=== PATIENT | male | born 1945 | race Caucasian/White ===

== ENCOUNTER → 2016-07-06 | Outpatient (CLI) | payer OTHER, MEDICARE ==
[~2016-07-06] MED LIST: ALBUTEROL0.09 MG/A1 IH; AMARYL1 MG PO; AMBIEN 10MG10 MG PO; CENTRUM SILVER1 TA3 PO; CEPHALEXIN500 M1 PO; CIALIS5 MG PO; CLOBETASOL0.05% TP; CLOPIDOGREL; CORDARONE200 MG/TAB PO; DIOVAN HCT 25 M1 TA1 PO; DIOVAN160 MG PO; DOXYCYCLINE 10100 MG PO; ELIQUIS 5MG PO; FISH OIL 1000MG1 CAP PO; FISH OIL CONC1000 MG PO; FISH OIL CONCEN1 SG1 PO; FLEXERIL 1010 MG/TAB PO; FLONASEALLERGY NS; GLUCOPHAGE1000 MG PO; HCTZ 25MG25 MG PO; HCTZ12.5TAB PO; K-DUR 10 MEQ T10 MEQ PO; LASIX 20MG TABL20 MG PO; LEVAQUIN 750MG750 M1 PO; LIORESAL 1010 MG/TAB PO; MEDROL 4MG DOSPA4 MG PO; MUCINEX DM 30 M1 TE1 PO; NEURONTIN300 MG/CAP PO; NEURONTIN600 MG/TAB PO; NITROSTAT0.4 MG/TAB SL; NORCO 325 MG-101 TAB PO; NTG 0.4; OMEGA 31000 MG PO; PERCOCET 325 MG1 TAB PO; PLAVIX 75MG TAB75 MG PO; PREDNISONE20 MG PO; PROAIR HFA0.09 MG/AC IH; RT ADVAIR 228 DISKUS IH; TEMOVATE0.05% TP; TOPROL XL 50MG50 MG PO; TOPROL XL50 MG PO; VALIUM 5MG T5 MG/TAB PO; VENTOLIN0.09 MG IH; VICODIN 5/5001 UDTAB PO; ZETIA 10MG TAB10 MG PO; ZOCOR 20MG20 MG PO; [UNRECOGNIZED DRUG - REMARK]
== END ==
LOC: MHCPAIN 08:51
DX: G89.29 Other chronic pain (principal); M47.817 Spondylosis without myelopathy or radiculopathy, lumbosacral region; M96.1 Postlaminectomy syndrome, not elsewhere classified; M53.3 Sacrococcygeal disorders, not elsewhere classified
CPT/HCPCS: G0463

== ENCOUNTER → 2016-07-20 | Outpatient (CLI) | payer OTHER | LOC: COL.RAD 08:11 | DX: M54.16 Radiculopathy, lumbar region (principal); Z53.09 Procedure and treatment not carried out because of other contraindication; M96.1 Postlaminectomy syndrome, not elsewhere classified; M47.817 Spondylosis without myelopathy or radiculopathy, lumbosacral region; G89.29 Other chronic pain ==

== ENCOUNTER 2016-08-05 13:08 | Emergency (ER) | payer OTHER ==
[~2016-08-05] VITALS: Ht 175.3 cm; Wt 73.6 kg
[~2016-08-05 13:08] MED LIST changes: -AMARYL1 MG PO; -CORDARONE200 MG/TAB PO; -DIOVAN HCT 25 M1 TA1 PO; -DOXYCYCLINE 10100 MG PO; -ELIQUIS 5MG PO; -FLONASEALLERGY NS; -K-DUR 10 MEQ T10 MEQ PO; -LASIX 20MG TABL20 MG PO; -LEVAQUIN 750MG750 M1 PO; -MEDROL 4MG DOSPA4 MG PO; -MUCINEX DM 30 M1 TE1 PO; -PREDNISONE20 MG PO; -PROAIR HFA0.09 MG/AC IH; -RT ADVAIR 228 DISKUS IH; -TEMOVATE0.05% TP; -VENTOLIN0.09 MG IH
[2016-08-05 13:10] VITALS: BP 181/91; TEMP 97.7
[2016-08-05] MEDS ORDERED: NORCO 325 MG-101 TAB PO (13:45)
[2016-08-05 14:01] VITALS: PULSE 88
== END 2016-08-05 14:01 | disposition home or self-care (01) ==
LOC: COL.ER 13:08
DX: M54.5 Low back pain (principal)

== ENCOUNTER → 2016-08-20 | Outpatient (CLI) | payer OTHER ==
[~2016-08-20] MED LIST changes: +AMARYL1 MG PO; +CORDARONE200 MG/TAB PO; +DIOVAN HCT 25 M1 TA1 PO; +DOXYCYCLINE 10100 MG PO; +ELIQUIS 5MG PO; +FLONASEALLERGY NS; +K-DUR 10 MEQ T10 MEQ PO; +LASIX 20MG TABL20 MG PO; +LEVAQUIN 750MG750 M1 PO; +MEDROL 4MG DOSPA4 MG PO; +MUCINEX DM 30 M1 TE1 PO; +PREDNISONE20 MG PO; +PROAIR HFA0.09 MG/AC IH; +RT ADVAIR 228 DISKUS IH; +TEMOVATE0.05% TP; +VENTOLIN0.09 MG IH
== END ==
LOC: MHCPAIN 13:04
DX: G89.29 Other chronic pain (principal); M47.817 Spondylosis without myelopathy or radiculopathy, lumbosacral region; M54.16 Radiculopathy, lumbar region; M96.1 Postlaminectomy syndrome, not elsewhere classified
CPT/HCPCS: G0463

== ENCOUNTER → 2016-09-19 | Outpatient (CLI) | payer OTHER | LOC: MHCPAIN 10:12 | DX: G89.29 Other chronic pain (principal); M47.817 Spondylosis without myelopathy or radiculopathy, lumbosacral region; M54.16 Radiculopathy, lumbar region; M53.3 Sacrococcygeal disorders, not elsewhere classified; M96.1 Postlaminectomy syndrome, not elsewhere classified; F17.210 Nicotine dependence, cigarettes, uncomplicated | CPT/HCPCS: G0463 ==

== ENCOUNTER → 2016-10-02 | Outpatient (CLI) | payer OTHER, MEDICARE ==
[~2016-10-02] VITALS: Ht 177.8 cm; Wt 74.1 kg
[2016-10-02 15:15] VITALS: BP 166/90; PULSE 65
[2016-10-02 15:30] VITALS: BP 142/82; PULSE 66
== END ==
LOC: COL.RAD 11:14
DX: M96.1 Postlaminectomy syndrome, not elsewhere classified (principal)
CPT/HCPCS: A9585; J2704; J3010

== ENCOUNTER 2016-10-16 13:52 | Observation (INO) | payer MEDICARE, OTHER ==
[2016-10-16] VITALS (398 sets, daily range): BP systolic 100–145; BP diastolic 72–82; PULSE 70–113; TEMP 97.2–97.7; O2SAT 83–100
[~2016-10-16] VITALS: Ht 175.3 cm; Wt 76.7 kg
[~2016-10-16 13:52] MED LIST changes: -AMARYL1 MG PO; -CORDARONE200 MG/TAB PO; -DIOVAN HCT 25 M1 TA1 PO; -DOXYCYCLINE 10100 MG PO; -ELIQUIS 5MG PO; -FLONASEALLERGY NS; -K-DUR 10 MEQ T10 MEQ PO; -LASIX 20MG TABL20 MG PO; -LEVAQUIN 750MG750 M1 PO; -MEDROL 4MG DOSPA4 MG PO; -MUCINEX DM 30 M1 TE1 PO; -PREDNISONE20 MG PO; -PROAIR HFA0.09 MG/AC IH; -RT ADVAIR 228 DISKUS IH; -TEMOVATE0.05% TP; -VENTOLIN0.09 MG IH
[2016-10-16 14:23] LABS: BASO # 0.1 (0.0-0.2); BASO % 0.7 % (0.0-2.0); GRAN # 6.7 (1.4-6.5); GRAN % 68.2 % (42.2-75.2); HEMATOCRIT 40.5 % (42.0-52.0); HEMOGLOBIN 13.5 g/dl (13.5-18.0); INR 1.1 (0.8-3.0); LYMPH # 2.3 (1.2-3.4); LYMPH % 22.9 % (20.0-51.0); MEAN CELL VOLUME 92 fl (80.0-100.0); MEAN CORPUSCULAR HEMOGLOBIN 31 pg (27.0-31.0); MEAN CORPUSCULAR HGB CONC 33 g/dl (33.0-37.0); MEAN PLATELET VOLUME 9.5 fl (7.4-10.4); MONO # 0.8 (0.1-0.6); MONO % 7.7 % (1.7-9.3); PLATELET COUNT 256 K/mm3 (130-400); PROTHROMBIN TIME 11.9 SECONDS (9.7-12.8); RED BLOOD COUNT 4.41 M/mm3 (4.20-5.60); REDCELL DISTRIBUTION WIDTH-CV 13.4 % (11.5-14.5); WHITE BLOOD COUNT 9.8 K/mm3 (4.8-10.8)
[2016-10-16 14:25] LABS: PARTIAL THROMBOPLASTIN TIME 32.4 SECONDS (26.0-37.0)
[2016-10-16 14:27] LABS: ALBUMIN 4.3 gm/dL (3.5-5.0); BILIRUBIN,TOTAL 0.8 mg/dL (0.0-1.0); CALCIUM 9.2 mg/dL (8.4-10.2); CREATININE, serum 0.73 mg/dL (0.66-1.25); POTASSIUM 4.2 mmol/L (3.4-5.0); TOTAL PROTEIN 7.4 gm/dL (6.4-8.2)
[2016-10-16 14:38] LABS: TROPONIN-I 0.013 ng/mL (0.000-0.034)
[2016-10-16] MEDS ORDERED: FLONASEALLERGY NS (16:09)
[2016-10-16] MEDS ORDERED: ZETIA 10MG TAB10 MG PO (16:09)
[2016-10-16] MEDS ORDERED: AMARYL1 MG PO (16:11)
[2016-10-16] MEDS ORDERED: DIOVAN HCT 25 M1 TA1 PO (16:13)
[2016-10-16] MEDS ORDERED: TEMOVATE0.05% TP (16:15)
[2016-10-16 16:18] LABS: MAGNESIUM 1.7 mg/dL (1.6-2.3)
[2016-10-16] MEDS ORDERED: NITROSTAT0.4 MG/TAB SL (19:42)
[2016-10-17] VITALS (494 sets, daily range): BP systolic 126–133; BP diastolic 77–81; PULSE 70–83; TEMP 97.1–97.2; O2SAT 80–100
[2016-10-17 07:21] LABS: BASO # 0.1 (0.0-0.2); BASO % 0.6 % (0.0-2.0); GRAN # 8.6 (1.4-6.5); GRAN % 69.3 % (42.2-75.2); HEMATOCRIT 39.3 % (42.0-52.0); HEMOGLOBIN 12.9 g/dl (13.5-18.0); LYMPH # 2.8 (1.2-3.4); LYMPH % 22.7 % (20.0-51.0); MEAN CELL VOLUME 92 fl (80.0-100.0); MEAN CORPUSCULAR HEMOGLOBIN 30 pg (27.0-31.0); MEAN CORPUSCULAR HGB CONC 33 g/dl (33.0-37.0); MEAN PLATELET VOLUME 9.5 fl (7.4-10.4); MONO # 0.9 (0.1-0.6); PLATELET COUNT 242 K/mm3 (130-400); RED BLOOD COUNT 4.27 M/mm3 (4.20-5.60); REDCELL DISTRIBUTION WIDTH-CV 13.6 % (11.5-14.5); WHITE BLOOD COUNT 12.4 K/mm3 (4.8-10.8)
[2016-10-17 07:38] LABS: CALCIUM 8.5 mg/dL (8.4-10.2); CREATININE, serum 0.61 mg/dL (0.66-1.25); POTASSIUM 4.6 mmol/L (3.4-5.0)
[2016-10-17] MEDS ORDERED: ELIQUIS 5MG PO (11:36)
[2016-10-17] MEDS ORDERED: LEVAQUIN 750MG750 M1 PO (11:36)
[2016-10-17] MEDS ORDERED: MUCINEX DM 30 M1 TE1 PO (11:39)
[2016-10-17] MEDS ORDERED: RT ADVAIR 228 DISKUS IH (11:40)
[2016-10-17] MEDS ORDERED: PROAIR HFA0.09 MG/AC IH (11:41)
[2016-10-17] MEDS ORDERED: MEDROL 4MG DOSPA4 MG PO (11:41)
[2016-10-18] MEDS ORDERED: K-DUR 10 MEQ T10 MEQ PO (13:22)
[2016-10-18] MEDS ORDERED: LASIX 20MG TABL20 MG PO (13:22)
== END 2016-10-17 11:52 | disposition left against medical advice (07) ==
LOC: COL.ER 13:52 → ICU 15:15
PROVIDERS: Family Medicine; Internal Medicine
DX: I49.9 Cardiac arrhythmia, unspecified (principal); I95.9 Hypotension, unspecified; I08.1 Rheumatic disorders of both mitral and tricuspid valves; E11.9 Type 2 diabetes mellitus without complications; I10 Essential (primary) hypertension; I25.2 Old myocardial infarction; I25.10 Atherosclerotic heart disease of native coronary artery without angina pectoris; J43.9 Emphysema, unspecified; G47.00 Insomnia, unspecified; M54.9 Dorsalgia, unspecified; G89.29 Other chronic pain; M19.90 Unspecified osteoarthritis, unspecified site; N40.0 Benign prostatic hyperplasia without lower urinary tract symptoms; E78.5 Hyperlipidemia, unspecified; F41.9 Anxiety disorder, unspecified; F17.210 Nicotine dependence, cigarettes, uncomplicated; Z95.1 Presence of aortocoronary bypass graft; Z86.73 Personal history of transient ischemic attack (TIA), and cerebral infarction without residual deficits; Z79.84 Long term (current) use of oral hypoglycemic drugs; Z79.4 Long term (current) use of insulin; Z82.3 Family history of stroke; Z82.49 Family history of ischemic heart disease and other diseases of the circulatory system
CPT/HCPCS: 99223-AI; G0378; J1160; J1815; J7030

== ENCOUNTER 2016-10-18 07:34 | Emergency (ER) | payer MEDICARE ==
[~2016-10-18] VITALS: Ht 175.3 cm; Wt 75.5 kg
[~2016-10-18 07:34] MED LIST changes: -CORDARONE200 MG/TAB PO; -DOXYCYCLINE 10100 MG PO; -K-DUR 10 MEQ T10 MEQ PO; -LASIX 20MG TABL20 MG PO; -PREDNISONE20 MG PO; -VENTOLIN0.09 MG IH
[2016-10-18 07:37] VITALS: TEMP 98
[2016-10-18 08:53] LABS: BASO % 0.3 % (0.0-2.0); GRAN # 10.5 (1.4-6.5); GRAN % 83.9 % (42.2-75.2); HEMATOCRIT 38.1 % (42.0-52.0); HEMOGLOBIN 12.8 g/dl (13.5-18.0); LYMPH % 8.2 % (20.0-51.0); MEAN CELL VOLUME 89 fl (80.0-100.0); MEAN CORPUSCULAR HEMOGLOBIN 30 pg (27.0-31.0); MEAN CORPUSCULAR HGB CONC 34 g/dl (33.0-37.0); MEAN PLATELET VOLUME 10.1 fl (7.4-10.4); MONO # 0.9 (0.1-0.6); MONO % 7.1 % (1.7-9.3); PLATELET COUNT 241 K/mm3 (130-400); RED BLOOD COUNT 4.27 M/mm3 (4.20-5.60); REDCELL DISTRIBUTION WIDTH-CV 13.5 % (11.5-14.5); WHITE BLOOD COUNT 12.6 K/mm3 (4.8-10.8)
[2016-10-18 09:05] LABS: ADJUSTED CALCIUM 8.8 mg/dL (8.4-10.2); ALBUMIN 3.9 gm/dL (3.5-5.0); BILIRUBIN,TOTAL 0.9 mg/dL (0.0-1.0); CALCIUM 8.7 mg/dL (8.4-10.2); CREATININE, serum 0.59 mg/dL (0.66-1.25); POTASSIUM 3.8 mmol/L (3.4-5.0); TOTAL PROTEIN 6.8 gm/dL (6.4-8.2)
[2016-10-18 09:38] LABS: TROPONIN-I 0.047 ng/mL (0.000-0.034)
[2016-10-18 10:06] LABS: INR 1.3 (0.8-3.0); PROTHROMBIN TIME 14.3 SECONDS (9.7-12.8)
[2016-10-18] MEDS ORDERED: LASIX 20MG TABL20 MG PO (13:22)
[2016-10-18] MEDS ORDERED: K-DUR 10 MEQ T10 MEQ PO (13:22)
[2016-10-18 13:51] VITALS: BP 130/77; PULSE 80
== END 2016-10-18 13:33 | disposition home or self-care (01) ==
LOC: COL.ER 07:34
PROVIDERS: Emergency Medicine
DX: I50.9 Heart failure, unspecified (principal); R07.9 Chest pain, unspecified; I48.91 Unspecified atrial fibrillation; R06.02 Shortness of breath; R06.2 Wheezing
CPT/HCPCS: A9502; C9113; J1940

== ENCOUNTER → 2016-10-18 | Outpatient (CLI) | payer MEDICARE ==
[~2016-10-18] MED LIST changes: +AMARYL1 MG PO; +CORDARONE200 MG/TAB PO; +DIOVAN HCT 25 M1 TA1 PO; +DOXYCYCLINE 10100 MG PO; +ELIQUIS 5MG PO; +FLONASEALLERGY NS; +K-DUR 10 MEQ T10 MEQ PO; +LASIX 20MG TABL20 MG PO; +LEVAQUIN 750MG750 M1 PO; +MEDROL 4MG DOSPA4 MG PO; +MUCINEX DM 30 M1 TE1 PO; +PREDNISONE20 MG PO; +PROAIR HFA0.09 MG/AC IH; +RT ADVAIR 228 DISKUS IH; +TEMOVATE0.05% TP; +VENTOLIN0.09 MG IH
[2016-10-18 07:30] VITALS: BP 145/106; PULSE 140
[2016-10-18 11:04] VITALS: BP 1116/61; PULSE 77
[2016-10-18 11:05] VITALS: BP 103/66; PULSE 119
[2016-10-18 11:07] VITALS: BP 119/65; PULSE 88
[2016-10-18 11:09] VITALS: BP 108/63; PULSE 88
== END ==
LOC: COL.CARD 07:10
DX: I25.10 Atherosclerotic heart disease of native coronary artery without angina pectoris (principal)
CPT/HCPCS: J2785

== ENCOUNTER → 2016-10-19 | Outpatient (CLI) | payer MEDICARE ==
[~2016-10-19] MED LIST changes: +CORDARONE200 MG/TAB PO; +DOXYCYCLINE 10100 MG PO; +K-DUR 10 MEQ T10 MEQ PO; +LASIX 20MG TABL20 MG PO; +PREDNISONE20 MG PO; +VENTOLIN0.09 MG IH
== END ==
LOC: MHCPAIN 09:40
DX: G89.29 Other chronic pain (principal); M47.817 Spondylosis without myelopathy or radiculopathy, lumbosacral region; M54.16 Radiculopathy, lumbar region; M96.1 Postlaminectomy syndrome, not elsewhere classified
CPT/HCPCS: G0463

== ENCOUNTER 2016-10-23 10:54 | Outpatient (CLI) | payer MEDICARE ==
[2016-10-23] VITALS (8 sets, daily range): BP systolic 101–129; BP diastolic 65–82; PULSE 53–78; TEMP 98
[~2016-10-23] VITALS: Ht 176.5 cm; Wt 75.0 kg
[~2016-10-23 10:54] MED LIST changes: -CORDARONE200 MG/TAB PO; -DOXYCYCLINE 10100 MG PO; -PREDNISONE20 MG PO; -VENTOLIN0.09 MG IH
[2016-10-23 11:29] LABS: HEMATOCRIT 39.7 % (42.0-52.0); HEMOGLOBIN 13.1 g/dl (13.5-18.0); MEAN CELL VOLUME 90 fl (80.0-100.0); MEAN CORPUSCULAR HEMOGLOBIN 30 pg (27.0-31.0); MEAN CORPUSCULAR HGB CONC 33 g/dl (33.0-37.0); MEAN PLATELET VOLUME 9.2 fl (7.4-10.4); PLATELET COUNT 303 K/mm3 (130-400); RED BLOOD COUNT 4.41 M/mm3 (4.20-5.60); REDCELL DISTRIBUTION WIDTH-CV 13.5 % (11.5-14.5); WHITE BLOOD COUNT 11.4 K/mm3 (4.8-10.8)
[2016-10-23] MEDS ORDERED: VENTOLIN0.09 MG IH (11:31)
[2016-10-23] MEDS ORDERED: ELIQUIS 5MG PO (11:31)
[2016-10-23 11:34] LABS: INR 1.7 (0.8-3.0); PROTHROMBIN TIME 19.3 SECONDS (9.7-12.8)
[2016-10-23] MEDS ORDERED: RT ADVAIR 228 DISKUS IH (11:34)
[2016-10-23] MEDS ORDERED: LASIX 20MG TABL20 MG PO (11:36)
[2016-10-23] MEDS ORDERED: LEVAQUIN 750MG750 M1 PO (11:38)
[2016-10-23] MEDS ORDERED: K-DUR 10 MEQ T10 MEQ PO (11:42)
[2016-10-23 11:49] LABS: CALCIUM 8.9 mg/dL (8.4-10.2); CREATININE, serum 0.84 mg/dL (0.66-1.25); POTASSIUM 4.1 mmol/L (3.4-5.0)
[2016-10-23] MEDS ORDERED: CORDARONE200 MG/TAB PO (15:42)
== END 2016-10-23 16:25 | disposition home or self-care (01) ==
LOC: EUO 10:54 → COL.RAD 11:15 → EUO 16:25
PROVIDERS: Internal Medicine Cardiovascular Disease
DX: I34.0 Nonrheumatic mitral (valve) insufficiency (principal); I25.10 Atherosclerotic heart disease of native coronary artery without angina pectoris
CPT/HCPCS: J0282; J2704; J7030; J7060

== ENCOUNTER → 2016-11-19 | Outpatient (CLI) | payer MEDICARE ==
[~2016-11-19] MED LIST changes: +CORDARONE200 MG/TAB PO; +DOXYCYCLINE 10100 MG PO; +PREDNISONE20 MG PO; +VENTOLIN0.09 MG IH
== END ==
LOC: MHCPAIN 08:58
DX: G89.29 Other chronic pain (principal); M47.817 Spondylosis without myelopathy or radiculopathy, lumbosacral region; M54.16 Radiculopathy, lumbar region; M96.1 Postlaminectomy syndrome, not elsewhere classified; F17.210 Nicotine dependence, cigarettes, uncomplicated
CPT/HCPCS: G0463

== ENCOUNTER → 2016-12-24 | Outpatient (CLI) | payer MEDICARE | LOC: MHCPAIN 08:51 | DX: G89.29 Other chronic pain (principal); M47.27 Other spondylosis with radiculopathy, lumbosacral region; M53.3 Sacrococcygeal disorders, not elsewhere classified; M96.1 Postlaminectomy syndrome, not elsewhere classified; I48.91 Unspecified atrial fibrillation; F17.210 Nicotine dependence, cigarettes, uncomplicated; Z79.02 Long term (current) use of antithrombotics/antiplatelets | CPT/HCPCS: G0463 ==

== ENCOUNTER 2017-01-13 19:43 | Emergency (ER) | payer MEDICARE ==
[~2017-01-13] VITALS: Ht 175.3 cm; Wt 75.0 kg
[~2017-01-13 19:43] MED LIST changes: -DOXYCYCLINE 10100 MG PO; -PREDNISONE20 MG PO
[2017-01-13 19:44] VITALS: TEMP 97.9
[2017-01-13 20:16] LABS: BASO # 0.1 (0.0-0.2); BASO % 0.8 % (0.0-2.0); GRAN # 8.2 (1.4-6.5); GRAN % 63.3 % (42.2-75.2); HEMATOCRIT 41.2 % (42.0-52.0); HEMOGLOBIN 13.9 g/dl (13.5-18.0); LYMPH # 3.5 (1.2-3.4); LYMPH % 26.9 % (20.0-51.0); MEAN CELL VOLUME 89 fl (80.0-100.0); MEAN CORPUSCULAR HEMOGLOBIN 30 pg (27.0-31.0); MEAN CORPUSCULAR HGB CONC 34 g/dl (33.0-37.0); MEAN PLATELET VOLUME 9.4 fl (7.4-10.4); MONO # 1.1 (0.1-0.6); MONO % 8.5 % (1.7-9.3); PLATELET COUNT 227 K/mm3 (130-400); RED BLOOD COUNT 4.62 M/mm3 (4.20-5.60); REDCELL DISTRIBUTION WIDTH-CV 14.7 % (11.5-14.5)
[2017-01-13 20:29] LABS: ADJUSTED CALCIUM 8.7 mg/dL (8.4-10.2); ALANINE AMINOTRANSFERASE 31 U/L (21-72); ALBUMIN 4.3 gm/dL (3.5-5.0); ALKALINE PHOSPHATASE 62 U/L (50-136); ANION GAP 11 mmol/L (7-16); BILIRUBIN,TOTAL 0.5 mg/dL (0.0-1.0); BLOOD UREA NITROGEN 13 mg/dL (9-20); C-REACTIVE PROTEIN 1.3 mg/dL (0.0-0.9); CALCIUM 8.9 mg/dL (8.4-10.2); CARBON DIOXIDE 26 mmol/L (22-30); CHLORIDE 96 mmol/L (98-107); CREATININE, serum 0.83 mg/dL (0.66-1.25); GLUCOSE 89 mg/dL (74-106); POTASSIUM 3.7 mmol/L (3.4-5.0); SODIUM 134 mmol/L (137-145); TOTAL PROTEIN 7.2 gm/dL (6.4-8.2)
[2017-01-13 20:38] LABS: B-TYPE NATRIURETIC PEPTIDE 859 pg/mL (0-125)
[2017-01-13 20:39] LABS: TROPONIN-I < 0.012 ng/mL (0.000-0.034)
[2017-01-13] MEDS ORDERED: PREDNISONE20 MG PO (22:27)
[2017-01-13] MEDS ORDERED: DOXYCYCLINE 10100 MG PO (22:27)
[2017-01-13 22:50] VITALS: BP 177/86; PULSE 55
== END 2017-01-13 22:50 | disposition home or self-care (01) ==
LOC: COL.ER 19:43
PROVIDERS: Emergency Medicine
DX: J20.9 Acute bronchitis, unspecified (principal); I48.91 Unspecified atrial fibrillation; I10 Essential (primary) hypertension; E78.5 Hyperlipidemia, unspecified; F17.210 Nicotine dependence, cigarettes, uncomplicated; Z86.73 Personal history of transient ischemic attack (TIA), and cerebral infarction without residual deficits; Z87.09 Personal history of other diseases of the respiratory system; Z79.02 Long term (current) use of antithrombotics/antiplatelets; Z79.84 Long term (current) use of oral hypoglycemic drugs
CPT/HCPCS: J7512; Q9967

== ENCOUNTER → 2017-01-23 | Outpatient (CLI) | payer MEDICARE ==
[~2017-01-23] MED LIST changes: +DOXYCYCLINE 10100 MG PO; +PREDNISONE20 MG PO
== END ==
LOC: MHCPAIN 08:56
DX: G89.29 Other chronic pain (principal); M47.27 Other spondylosis with radiculopathy, lumbosacral region; M53.3 Sacrococcygeal disorders, not elsewhere classified; M96.1 Postlaminectomy syndrome, not elsewhere classified; F17.210 Nicotine dependence, cigarettes, uncomplicated; Z79.02 Long term (current) use of antithrombotics/antiplatelets
CPT/HCPCS: G0463

== ENCOUNTER 2017-02-28 09:16 | Emergency (ER) | payer MEDICARE ==
[~2017-02-28] VITALS: Ht 175.3 cm; Wt 68.6 kg
[2017-02-28] MEDS ORDERED: PERCOCET 325 MG1 TA2 PO (11:02)
[2017-02-28] MEDS ORDERED: FLEXERIL 1010 MG/TAB PO (11:02)
[2017-02-28 11:44] VITALS: BP 171/81; PULSE 74; TEMP 97.8
== END 2017-02-28 11:30 | disposition home or self-care (01) ==
LOC: COL.ER 09:16
DX: M54.5 Low back pain (principal); E11.9 Type 2 diabetes mellitus without complications; I10 Essential (primary) hypertension; F17.210 Nicotine dependence, cigarettes, uncomplicated; Z79.84 Long term (current) use of oral hypoglycemic drugs; Z79.02 Long term (current) use of antithrombotics/antiplatelets; X58.XXXA Exposure to other specified factors, initial encounter
CPT/HCPCS: J2360

== ENCOUNTER → 2017-04-24 | Outpatient (CLI) | payer MEDICARE ==
[~2017-04-24] MED LIST changes: +PERCOCET 325 MG1 TA2 PO
== END ==
LOC: MHCPAIN 08:29
DX: G89.29 Other chronic pain (principal); M47.27 Other spondylosis with radiculopathy, lumbosacral region; M53.3 Sacrococcygeal disorders, not elsewhere classified; M96.1 Postlaminectomy syndrome, not elsewhere classified; F17.210 Nicotine dependence, cigarettes, uncomplicated
CPT/HCPCS: G0463

== ENCOUNTER → 2017-05-22 | Outpatient (CLI) | payer MEDICARE | LOC: MHCPAIN 09:05 | DX: G89.29 Other chronic pain (principal); M47.27 Other spondylosis with radiculopathy, lumbosacral region; M53.3 Sacrococcygeal disorders, not elsewhere classified; M96.1 Postlaminectomy syndrome, not elsewhere classified; F17.210 Nicotine dependence, cigarettes, uncomplicated | CPT/HCPCS: G0463 ==

== ENCOUNTER → 2017-06-24 | Outpatient (CLI) | payer MEDICARE | LOC: MHCPAIN 09:19 | DX: G89.29 Other chronic pain (principal); M47.27 Other spondylosis with radiculopathy, lumbosacral region; M53.3 Sacrococcygeal disorders, not elsewhere classified; M96.1 Postlaminectomy syndrome, not elsewhere classified; F17.210 Nicotine dependence, cigarettes, uncomplicated | CPT/HCPCS: G0463 ==

== ENCOUNTER → 2017-07-22 | Outpatient (CLI) | payer MEDICARE | LOC: MHCPAIN 09:09 | DX: G89.29 Other chronic pain (principal); M47.27 Other spondylosis with radiculopathy, lumbosacral region; M53.3 Sacrococcygeal disorders, not elsewhere classified; M96.1 Postlaminectomy syndrome, not elsewhere classified; F17.210 Nicotine dependence, cigarettes, uncomplicated | CPT/HCPCS: G0463 ==

== ENCOUNTER → 2017-08-19 | Outpatient (CLI) | payer MEDICARE | LOC: MHCPAIN 12:25 | DX: G89.29 Other chronic pain (principal); M47.27 Other spondylosis with radiculopathy, lumbosacral region; M53.3 Sacrococcygeal disorders, not elsewhere classified; M96.1 Postlaminectomy syndrome, not elsewhere classified; F17.210 Nicotine dependence, cigarettes, uncomplicated | CPT/HCPCS: G0463 ==

== ENCOUNTER → 2017-09-02 | Outpatient (CLI) | payer MEDICARE | LOC: MHCPAIN 13:13 | DX: G89.29 Other chronic pain (principal); M47.817 Spondylosis without myelopathy or radiculopathy, lumbosacral region; M54.16 Radiculopathy, lumbar region; M53.3 Sacrococcygeal disorders, not elsewhere classified; M96.1 Postlaminectomy syndrome, not elsewhere classified | CPT/HCPCS: G0463 ==

== ENCOUNTER → 2017-11-04 | Outpatient (CLI) | payer MEDICARE | LOC: MHCPAIN 10:07 | DX: G89.29 Other chronic pain (principal); M47.817 Spondylosis without myelopathy or radiculopathy, lumbosacral region; M54.16 Radiculopathy, lumbar region; M53.3 Sacrococcygeal disorders, not elsewhere classified; M96.1 Postlaminectomy syndrome, not elsewhere classified | CPT/HCPCS: G0463 ==

== ENCOUNTER → 2017-11-07 | Outpatient (CLI) | payer MEDICARE | LOC: COL.RAD 13:39 | DX: J84.89 Other specified interstitial pulmonary diseases (principal); I51.7 Cardiomegaly; Z95.1 Presence of aortocoronary bypass graft; Z98.890 Other specified postprocedural states ==

== ENCOUNTER → 2017-12-24 | Outpatient (CLI) | payer MEDICARE | LOC: COL.RAD 11:48 | DX: I65.23 Occlusion and stenosis of bilateral carotid arteries (principal); I65.03 Occlusion and stenosis of bilateral vertebral arteries; M47.812 Spondylosis without myelopathy or radiculopathy, cervical region | CPT/HCPCS: Q9967 ==

== ENCOUNTER → 2018-01-06 | Outpatient (CLI) | payer MEDICARE ==
[~2018-01-06] MED LIST changes: +ANORO INH; +BENICAR HCT 251 TAB PO; +SPIRIVA RE2.5 MCG/Ac INH; +ZITHROMAX Z PA250 MG PO
== END ==
LOC: MHCPAIN 09:30
DX: G89.29 Other chronic pain (principal); M47.817 Spondylosis without myelopathy or radiculopathy, lumbosacral region; M54.16 Radiculopathy, lumbar region; M53.3 Sacrococcygeal disorders, not elsewhere classified; M96.1 Postlaminectomy syndrome, not elsewhere classified
CPT/HCPCS: G0463

== ENCOUNTER 2018-01-08 07:38 | Emergency (ER) | payer MEDICARE ==
[~2018-01-08] VITALS: Ht 175.3 cm; Wt 70.5 kg
[~2018-01-08 07:38] MED LIST changes: -ANORO INH; -BENICAR HCT 251 TAB PO; -SPIRIVA RE2.5 MCG/Ac INH; -ZITHROMAX Z PA250 MG PO
[2018-01-08 07:43] VITALS: TEMP 98.1
[2018-01-08] MEDS ORDERED: BENICAR HCT 251 TAB PO (08:05)
[2018-01-08] MEDS ORDERED: SPIRIVA RE2.5 MCG/Ac INH (08:12)
[2018-01-08] MEDS ORDERED: ANORO INH (08:13)
[2018-01-08 08:57] VITALS: BP 161/86; PULSE 60
== END 2018-01-08 08:54 | disposition home or self-care (01) ==
LOC: COL.ER 07:38
DX: S22.32XA Fracture of one rib, left side, initial encounter for closed fracture (principal); I10 Essential (primary) hypertension; I25.10 Atherosclerotic heart disease of native coronary artery without angina pectoris; E78.00 Pure hypercholesterolemia, unspecified; J44.9 Chronic obstructive pulmonary disease, unspecified; F17.210 Nicotine dependence, cigarettes, uncomplicated; W01.10XA Fall on same level from slipping, tripping and stumbling with subsequent striking against unspecified object, initial encounter; Y92.009 Unspecified place in unspecified non-institutional (private) residence as the place of occurrence of the external cause
CPT/HCPCS: J1170

== ENCOUNTER 2018-01-10 10:01 | Emergency (ER) | payer MEDICARE ==
[~2018-01-10] VITALS: Ht 175.3 cm; Wt 70.5 kg
[~2018-01-10 10:01] MED LIST changes: +ANORO INH; +BENICAR HCT 251 TAB PO; +SPIRIVA RE2.5 MCG/Ac INH
[2018-01-10 10:05] VITALS: BP 157/89; TEMP 97.9
[2018-01-10] MEDS ORDERED: ZITHROMAX Z PA250 MG PO (10:27)
[2018-01-10 10:46] VITALS: PULSE 60
== END 2018-01-10 10:48 | disposition home or self-care (01) ==
LOC: COL.ER 10:01
DX: R07.89 Other chest pain (principal)

== ENCOUNTER → 2018-03-04 | Outpatient (CLI) | payer MEDICARE ==
[~2018-03-04] MED LIST changes: +ZITHROMAX Z PA250 MG PO
== END ==
LOC: MHCPAIN 09:34
DX: G89.29 Other chronic pain (principal); M47.817 Spondylosis without myelopathy or radiculopathy, lumbosacral region; M54.16 Radiculopathy, lumbar region; M53.3 Sacrococcygeal disorders, not elsewhere classified; M96.1 Postlaminectomy syndrome, not elsewhere classified
CPT/HCPCS: G0463

== ENCOUNTER → 2018-04-30 | Outpatient (CLI) | payer MEDICARE | LOC: MHCPAIN 09:21 | DX: G89.29 Other chronic pain (principal); M47.817 Spondylosis without myelopathy or radiculopathy, lumbosacral region; M54.16 Radiculopathy, lumbar region; M53.3 Sacrococcygeal disorders, not elsewhere classified; M96.1 Postlaminectomy syndrome, not elsewhere classified | CPT/HCPCS: G0463 ==

== ENCOUNTER → 2018-05-28 | Outpatient (CLI) | payer MEDICARE | LOC: MHCPAIN 09:02 | DX: G89.29 Other chronic pain (principal); M47.817 Spondylosis without myelopathy or radiculopathy, lumbosacral region; M54.16 Radiculopathy, lumbar region; M53.3 Sacrococcygeal disorders, not elsewhere classified; M96.1 Postlaminectomy syndrome, not elsewhere classified | CPT/HCPCS: G0463 ==

== ENCOUNTER 2018-06-18 14:04 | Emergency (ER) | payer MEDICARE ==
[~2018-06-18] VITALS: Ht 175.3 cm; Wt 72.7 kg
[2018-06-18 14:14] VITALS: TEMP 97.7
[2018-06-18] MEDS ORDERED: FLEXERIL 1010 MG/TAB PO (15:05)
[2018-06-18 16:29] VITALS: BP 157/85; PULSE 76
== END 2018-06-18 16:32 | disposition home or self-care (01) ==
LOC: COL.ER 14:04
DX: M54.5 Low back pain (principal); G89.29 Other chronic pain; I25.10 Atherosclerotic heart disease of native coronary artery without angina pectoris; E11.9 Type 2 diabetes mellitus without complications; F17.210 Nicotine dependence, cigarettes, uncomplicated; Z79.84 Long term (current) use of oral hypoglycemic drugs; Z95.5 Presence of coronary angioplasty implant and graft

== ENCOUNTER → 2018-06-24 | Outpatient (CLI) | payer MEDICARE | LOC: MHCPAIN 08:32 | DX: G89.29 Other chronic pain (principal); M47.817 Spondylosis without myelopathy or radiculopathy, lumbosacral region; M54.16 Radiculopathy, lumbar region; M53.3 Sacrococcygeal disorders, not elsewhere classified; M96.1 Postlaminectomy syndrome, not elsewhere classified | CPT/HCPCS: G0463 ==

== ENCOUNTER → 2018-08-25 | Outpatient (CLI) | payer MEDICARE | LOC: MHCPAIN 09:37 | DX: G89.29 Other chronic pain (principal); M47.817 Spondylosis without myelopathy or radiculopathy, lumbosacral region; M54.16 Radiculopathy, lumbar region; M53.3 Sacrococcygeal disorders, not elsewhere classified; M96.1 Postlaminectomy syndrome, not elsewhere classified | CPT/HCPCS: G0463 ==

== ENCOUNTER → 2018-11-17 | Outpatient (CLI) | payer OTHER, MEDICARE | LOC: MHCPAIN 10:11 | DX: G89.29 Other chronic pain (principal); M47.817 Spondylosis without myelopathy or radiculopathy, lumbosacral region; M54.16 Radiculopathy, lumbar region; M53.3 Sacrococcygeal disorders, not elsewhere classified; M96.1 Postlaminectomy syndrome, not elsewhere classified | CPT/HCPCS: G0463 ==

== ENCOUNTER → 2019-02-16 | Outpatient (CLI) | payer OTHER, MEDICARE | LOC: MHCPAIN 10:11 | DX: G89.29 Other chronic pain (principal); M47.817 Spondylosis without myelopathy or radiculopathy, lumbosacral region; M54.16 Radiculopathy, lumbar region; M53.3 Sacrococcygeal disorders, not elsewhere classified; M96.1 Postlaminectomy syndrome, not elsewhere classified | CPT/HCPCS: G0463 ==

== ENCOUNTER → 2019-03-16 | Outpatient (CLI) | payer MEDICARE | LOC: COL.RAD 10:06 | DX: Z01.812 Encounter for preprocedural laboratory examination (principal); I65.23 Occlusion and stenosis of bilateral carotid arteries | CPT/HCPCS: Q9967 ==

== ENCOUNTER 2019-05-15 09:02 | Emergency (ER) | payer OTHER ==
[~2019-05-15] VITALS: Ht 175.3 cm; Wt 73.6 kg
[2019-05-15 09:06] VITALS: BP 111/77; TEMP 97.6
[2019-05-15] MEDS ORDERED: ZANAFLEX2 MG PO (09:24)
[2019-05-15] MEDS ORDERED: TRULICITY0.75 MG/0. SQ (09:24)
[2019-05-15 10:37] VITALS: PULSE 94
== END 2019-05-15 10:38 | disposition home or self-care (01) ==
LOC: COL.ER 09:02
DX: M54.5 Low back pain (principal); G89.29 Other chronic pain; E11.9 Type 2 diabetes mellitus without complications; I10 Essential (primary) hypertension; Z88.6 Allergy status to analgesic agent; F17.210 Nicotine dependence, cigarettes, uncomplicated; Z88.5 Allergy status to narcotic agent; Z95.1 Presence of aortocoronary bypass graft; Z79.84 Long term (current) use of oral hypoglycemic drugs
CPT/HCPCS: J1170

== ENCOUNTER → 2019-06-24 | Outpatient (CLI) | payer MEDICARE ==
[~2019-06-24] MED LIST changes: +CATAPRES 0.1MG0.1 MG PO; +COZAAR100 MG PO; +HCTZ 25MG TAB25 MG PO; +NORVASC 5MG5 MG/TAB PO; +OSCAL 500 TAB500 MG PO; +PACERONE200 MG PO; +TOPROL XL 25MG25 MG PO; +TRULICITY0.75 MG/0. SQ; +ZANAFLEX2 MG PO
[2019-06-24 10:46] LABS: ALANINE AMINOTRANSFERASE 18 U/L (21-72); ALBUMIN 4.7 gm/dL (3.5-5.0); ALKALINE PHOSPHATASE 77 U/L (50-136); ANION GAP 12 mmol/L (7-16); AST,SGOT 30 U/L (15-37); BASO # 0.1 (0.0-0.2); BASO % 0.9 % (0.0-2.0); BILIRUBIN,TOTAL 0.6 mg/dL (0.0-1.0); BLOOD UREA NITROGEN 19 mg/dL (9-20); CALCIUM 9.1 mg/dL (8.4-10.2); CARBON DIOXIDE 32 mmol/L (22-30); CHLORIDE 92 mmol/L (98-107); CREATININE, serum 0.91 (0.66-1.25); GLUCOSE 184 mg/dL (74-106); GRAN % 68.6 % (42.2-75.2); HEMOGLOBIN 15.9 g/dl (13.5-18.0); LYMPH # 2.3 (1.2-3.4); LYMPH % 22.5 % (20.0-51.0); MEAN CELL VOLUME 92 fl (80.0-100.0); MEAN CORPUSCULAR HEMOGLOBIN 29 pg (27.0-31.0); MEAN CORPUSCULAR HGB CONC 32 g/dl (33.0-37.0); MEAN PLATELET VOLUME 10.6 fl (7.4-10.4); MONO # 0.8 (0.1-0.6); MONO % 7.5 % (1.7-9.3); PLATELET COUNT 189 K/mm3 (130-400); POTASSIUM 3.8 mmol/L (3.4-5.0); RED BLOOD COUNT 5.42 M/mm3 (4.20-5.60); REDCELL DISTRIBUTION WIDTH-CV 14.3 % (11.5-14.5); SODIUM 135 mmol/L (137-145)
[2019-06-24 10:51] LABS: C-REACTIVE PROTEIN < 0.5 mg/dL (0.0-0.9)
== END ==
LOC: COL.LAB 09:46
DX: R05 Cough (principal); R09.89 Other specified symptoms and signs involving the circulatory and respiratory systems

== ENCOUNTER → 2019-08-04 | Outpatient (CLI) | payer OTHER | LOC: COL.RAD 11:19 | DX: M51.17 Intervertebral disc disorders with radiculopathy, lumbosacral region (principal); M47.27 Other spondylosis with radiculopathy, lumbosacral region; I71.4 Abdominal aortic aneurysm, without rupture; M96.1 Postlaminectomy syndrome, not elsewhere classified | CPT/HCPCS: A9585 ==

== ENCOUNTER 2019-09-18 10:36 | Observation (INO) | payer MEDICARE ==
[~2019-09-18] VITALS: Ht 175.3 cm; Wt 67.1 kg
[2019-09-18] MEDS ORDERED: DAZIDOX10 MG PO (11:23)
[2019-09-18 11:32] LABS: INR 1.3 (0.8-3.0)
[2019-09-18 11:33] LABS: HEMATOCRIT 44.4 % (42.0-52.0); HEMOGLOBIN 14.2 g/dl (13.5-18.0); MEAN CELL VOLUME 93 fl (80.0-100.0); MEAN CORPUSCULAR HEMOGLOBIN 30 pg (27.0-31.0); MEAN CORPUSCULAR HGB CONC 32 g/dl (33.0-37.0); MEAN PLATELET VOLUME 9.8 fl (7.4-10.4); PLATELET COUNT 237 K/mm3 (130-400)
[2019-09-18 11:40] LABS: ALANINE AMINOTRANSFERASE 12 U/L (4-49); ALKALINE PHOSPHATASE 86 U/L (50-136); ANION GAP 6 mmol/L (7-16); AST,SGOT 20 U/L (15-37); BILIRUBIN,TOTAL 0.5 mg/dL (0.0-1.0); BLOOD UREA NITROGEN 15 mg/dL (9-20); CARBON DIOXIDE 32 mmol/L (22-30); CHLORIDE 98 mmol/L (98-107); CREATININE, serum 0.88 (0.66-1.25); GLUCOSE 134 mg/dL (74-106); LIPASE 30 U/L (23-300); POTASSIUM 3.8 mmol/L (3.4-5.0); SODIUM 136 mmol/L (137-145); TOTAL PROTEIN 7.2 gm/dL (6.4-8.2)
[2019-09-18 11:53] LABS: TROPONIN-I < 0.012 ng/mL (0.000-0.035)
[2019-09-18 12:22] LABS: BAND 4 % (0-10); EOSINOPHIL 1 % (0-4); LYMPHOCYTE 22 % (20.0-51.0); NEUTROPHILS 63 % (42.0-75.2); PLATELET ESTIMATE NORMAL (NORMAL)
--- NOTE | 2019-09-18 15:01 | NUR ---
PT TO ROOM 343 WITH REPORT FROM PASCUAL JOY @ [id number]. PT TO MRI AFTER ECHO COMPLETE.
[2019-09-18] MEDS ORDERED: PACERONE200 MG PO (15:54)
[2019-09-18] MEDS ORDERED: CORDARONE200 MG/TAB PO (15:55)
[2019-09-18 16:33] VITALS: BP 190/90; PULSE 57; TEMP 97.8
[2019-09-18 16:39] VITALS: BP 190/90; PULSE 56; TEMP 97.8
[2019-09-18 19:40] VITALS: BP 175/82; PULSE 58; TEMP 98.2
[2019-09-18 23:51] VITALS: BP 178/79; PULSE 55; TEMP 97.5
[2019-09-19 03:48] VITALS: BP 132/73; PULSE 51; TEMP 97.9
[2019-09-19 04:50] LABS: FOLATE (FOLIC ACID) 10.5 ng/mL (>=4.0)
--- NOTE | 2019-09-19 06:08 | NUR ---
Patient has been alert and oriented this shift. Patient required 2 units of insulin during the shift. Neuro checks have all been within normal limits this shift. Patient is tolerating eating and drinking. Blood pressures have been elevated, per patient norm, but did not exceed guidlines.
[2019-09-19 07:17] VITALS: BP 164/102; PULSE 64; TEMP 97.3
--- NOTE | 2019-09-19 08:00 | NUR ---
Patient sitting up in recliner. Alert and oriented x 3. Assessment compelete. Requested pain medication for chronic lower back pain, medications given per orders. Denies further needs at this time.
[2019-09-19 08:44] LABS: CALCIUM 8.9 mg/dL (8.4-10.2); CHOLESTEROL RISK RATIO 5.8; CREATININE, serum 0.82 (0.66-1.25); POTASSIUM 3.7 mmol/L (3.4-5.0)
[2019-09-19 08:46] LABS: BASO # 0.1 (0.0-0.2); BASO % 0.7 % (0.0-2.0); GRAN # 6.2 (1.4-6.5); GRAN % 63.5 % (42.2-75.2); HEMATOCRIT 45.9 % (42.0-52.0); HEMOGLOBIN 14.7 g/dl (13.5-18.0); LYMPH # 2.4 (1.2-3.4); LYMPH % 24.8 % (20.0-51.0); MEAN CELL VOLUME 93 fl (80.0-100.0); MEAN CORPUSCULAR HEMOGLOBIN 30 pg (27.0-31.0); MEAN CORPUSCULAR HGB CONC 32 g/dl (33.0-37.0); MEAN PLATELET VOLUME 10.2 fl (7.4-10.4); MONO % 9.8 % (1.7-9.3); PLATELET COUNT 249 K/mm3 (130-400); RED BLOOD COUNT 4.94 M/mm3 (4.20-5.60); REDCELL DISTRIBUTION WIDTH-CV 14.8 % (11.5-14.5)
[2019-09-19 09:17] VITALS: BP 104/61
[2019-09-19 11:32] VITALS: BP 148/69; PULSE 57; TEMP 97.9
--- NOTE | 2019-09-19 12:00 | NUR ---
Patient refuses insulin at this time. States he would like to take home medication once he is discharged.
--- NOTE | 2019-09-19 13:50 | NUR ---
Patient called out to nurses station stating he has back pain 10/20, chronic. Pain medication given per orders.
[2019-09-19 15:38] VITALS: BP 172/75; PULSE 95; TEMP 98.1
--- NOTE | 2019-09-19 15:50 | NUR ---
Dr. Magallon in to see patient.
--- NOTE | 2019-09-19 16:40 | NUR ---
Discharge education provided to patient. Educated on orthostatic hypotension. Patient to schedule follow up appointments. All questions answered. Denies further needs. INT to right AC discontinued, catheter tip intact. Coban dressing applied due to blood thinners. Denies further needs at this time. Patient out by wheelchair with surgical staff.
== END 2019-09-19 16:40 | disposition home or self-care (01) ==
LOC: COL.ER 10:36 → MEDICAL 12:55 → SURG 14:40
PROVIDERS: Emergency Medicine; Physician Assistant
DX: G45.9 Transient cerebral ischemic attack, unspecified (principal); G90.3 Multi-system degeneration of the autonomic nervous system; I16.0 Hypertensive urgency; I11.0 Hypertensive heart disease with heart failure; I50.22 Chronic systolic (congestive) heart failure; I48.0 Paroxysmal atrial fibrillation; I08.1 Rheumatic disorders of both mitral and tricuspid valves; I67.2 Cerebral atherosclerosis; G47.33 Obstructive sleep apnea (adult) (pediatric); E78.5 Hyperlipidemia, unspecified; G47.10 Hypersomnia, unspecified; E11.40 Type 2 diabetes mellitus with diabetic neuropathy, unspecified; J43.9 Emphysema, unspecified; F17.210 Nicotine dependence, cigarettes, uncomplicated; F41.9 Anxiety disorder, unspecified; Z79.84 Long term (current) use of oral hypoglycemic drugs; Z79.891 Long term (current) use of opiate analgesic; Z79.01 Long term (current) use of anticoagulants; Z88.5 Allergy status to narcotic agent; Z88.8 Allergy status to other drugs, medicaments and biological substances; Z79.4 Long term (current) use of insulin
CPT/HCPCS: A9585; G0378; J1815; Q9967

== ENCOUNTER 2019-10-06 09:36 | Emergency (ER) | payer MEDICARE ==
[~2019-10-06] VITALS: Ht 175.3 cm; Wt 66.8 kg
[~2019-10-06 09:36] MED LIST changes: +DAZIDOX10 MG PO
[2019-10-06 09:52] VITALS: TEMP 98.5
[2019-10-06 11:03] LABS: BASO # 0.1 (0.0-0.2); BASO % 0.8 % (0.0-2.0); GRAN # 7.3 (1.4-6.5); GRAN % 68.1 % (42.2-75.2); HEMATOCRIT 39.8 % (42.0-52.0); HEMOGLOBIN 12.8 g/dl (13.5-18.0); LYMPH # 2.2 (1.2-3.4); LYMPH % 20.6 % (20.0-51.0); MEAN CELL VOLUME 92 fl (80.0-100.0); MEAN CORPUSCULAR HEMOGLOBIN 30 pg (27.0-31.0); MEAN CORPUSCULAR HGB CONC 32 g/dl (33.0-37.0); MEAN PLATELET VOLUME 9.9 fl (7.4-10.4); MONO % 9.7 % (1.7-9.3); PLATELET COUNT 220 K/mm3 (130-400); RED BLOOD COUNT 4.32 M/mm3 (4.20-5.60); REDCELL DISTRIBUTION WIDTH-CV 14.1 % (11.5-14.5)
[2019-10-06 11:05] LABS: INR 1.3 (0.8-3.0); PROTHROMBIN TIME 14.4 SECONDS (9.7-12.8)
[2019-10-06 11:08] LABS: PARTIAL THROMBOPLASTIN TIME 37.4 SECONDS (26.0-37.0)
[2019-10-06 11:09] LABS: ALBUMIN 3.9 gm/dL (3.5-5.0); BILIRUBIN,TOTAL 0.5 mg/dL (0.0-1.0); CALCIUM 9.1 mg/dL (8.4-10.2); CREATININE, serum 0.9 (0.66-1.25); POTASSIUM 4.5 mmol/L (3.4-5.0); TOTAL PROTEIN 7.1 gm/dL (6.4-8.2)
[2019-10-06 12:03] VITALS: BP 147/76
[2019-10-06 12:23] VITALS: PULSE 71
== END 2019-10-06 12:24 | disposition home or self-care (01) ==
LOC: COL.ER 09:36
PROVIDERS: Physician Assistant
DX: R20.2 Paresthesia of skin (principal); I10 Essential (primary) hypertension; I48.91 Unspecified atrial fibrillation; J44.9 Chronic obstructive pulmonary disease, unspecified; F17.210 Nicotine dependence, cigarettes, uncomplicated; Z95.5 Presence of coronary angioplasty implant and graft; Z79.01 Long term (current) use of anticoagulants; Z79.84 Long term (current) use of oral hypoglycemic drugs

== ENCOUNTER 2020-04-19 07:30 | Day surgery (SDC) | payer MEDICARE, MEDICAID ==
[~2020-04-19] VITALS: Ht 175.3 cm; Wt 70.2 kg
[2020-04-19] VITALS (9 sets, daily range): BP systolic 139–190; BP diastolic 65–99; PULSE 57–80; TEMP 97.4–97.6
[2020-04-19] MEDS ORDERED: NORVASC 10MG10 MG PO (13:37)
[2020-04-19] MEDS ORDERED: CATAPRES 0.1MG0.1 MG PO (13:37)
[2020-04-19] MEDS ORDERED: COZAAR100 MG PO (13:38)
[2020-04-19] MEDS ORDERED: TOPROL XL 50MG50 MG PO (13:38)
[2020-04-19] MEDS ORDERED: NEURONTIN300 MG/CAP PO (13:39)
[2020-04-19] MEDS ORDERED: DAZIDOX10 MG PO (13:39)
[2020-04-19] MEDS ORDERED: ELIQUIS 2.5 PO (13:41)
[2020-04-19] MEDS ORDERED: GLUCOPHAGE500 MG/TAB PO (13:42)
--- NOTE | 2020-04-19 13:51 | NUR ---
Patient brought in his home medications. They are delivered to pharmacy for safe-keeping at this time. His medications included 10 oxycodone tablets which are counted with the patient and Comfort Amin RN prior to taking to pharmacy.
--- NOTE | 2020-04-19 14:32 | NUR ---
Patient goes to the OR at this time. Vancomycin is hanging, mostly infused. Dr. Amaro is notified and tells DESK SERGEANT Selene to proceed in taking the patient back. The Gentamicin is on the chart for GENERAL SURGERY PHYSICIAN ASSISTANT to give after vancomycin is completed.
[2020-04-19] MEDS ORDERED: COLACE 100100 MG/CAP PO (16:43)
[2020-04-19] MEDS ORDERED: NORCO 325 MG-51 TAB PO (16:44)
--- NOTE | 2020-04-19 19:33 | NUR ---
Patient resting in bed, post op checks in progress. Patient has been hypertensive since arriving to floor, called Dr. Ochoa for order for PRN hydralazine. Recieved TORB, order entered and medicaiton administered. Patient denies symptoms, does report back pain he rates at 4/10, administered PRN pain medicaiton per order. Patient had dinner arriving during bedside shift report and denies further needs, call light within reach.
--- NOTE | 2020-04-19 20:18 | NUR ---
Resting in bed. Assessment complete. Lungs clear. Heart sounds normal. Bowels active x4. Pulses present throughout. No edema noted. INT left forearm without complications. Reports 8/10 pain. Given second tablet of percocet. Penile implant, CDI. Dent to dependent drainage. On post op vital signs. BP elevated. Given scheduled medications. Denies other needs at this time. Call light in reach.
--- NOTE | 2020-04-20 00:18 | NUR ---
Reported 8/10 pain. Provided with PRN oxycodone per patient request.
[2020-04-20 01:03] VITALS: BP 139/66; PULSE 70; TEMP 98.5
[2020-04-20 04:20] VITALS: BP 168/74; PULSE 66; TEMP 98
--- NOTE | 2020-04-20 05:11 | NUR ---
Reported 5/10 pain. Given PRN oxycodone. Denies other needs at this time. Call light in reach.
[2020-04-20 05:13] VITALS: BP 156/75
--- NOTE | 2020-04-20 06:14 | NUR ---
Patient required oxycodone and percocet for pain control throughout night. Dent has clear yellow urine without complications. Resting in bed this AM. Call light in reach.
--- NOTE | 2020-04-20 07:04 | NUR ---
Report given to RUFINO Vilchis
[2020-04-20 07:46] VITALS: BP 178/95; PULSE 79; TEMP 97.5
--- NOTE | 2020-04-20 08:15 | NUR ---
Patient resting in bedside recliner at this time. Patient is alert and oriented, answers questions appropriately. Patient reports pain is controlled and denies any nausea or vomiting. Dent catheter removed per order. Instructed patient to inform staff when he voids the first time. Patient verbalized understanding and denies further needs, call light within reach.
--- NOTE | 2020-04-20 09:24 | NUR ---
Initial visit; Patient thanked Rn Mds Coordinator for looking in on him, wishing him well and offering God's blessings.
--- NOTE | 2020-04-20 10:23 | NUR ---
Discharge teaching completed. Discussed discharge appointment, discharge instructions, and medications. Patient verbalized understanding. Patient medications were returned to him, he confirms all medications are there. INT removed from LH, catheter intact, hemostasis achieved. Patient denied further needs. Patient has already dressed and states he would like to wait for his ride downstairs. Informed patient that the waiting rooms are closed due to precautions. Patient escorted to admissions entrance where he later entered a private vehicle after reporting that his ride had arrived.
== END 2020-04-20 10:38 | disposition home or self-care (01) ==
LOC: SDCO 07:30 → JCC 18:22 → SDCO 04-20 10:38
DX: N52.9 Male erectile dysfunction, unspecified (principal); I11.0 Hypertensive heart disease with heart failure; F17.210 Nicotine dependence, cigarettes, uncomplicated; I25.10 Atherosclerotic heart disease of native coronary artery without angina pectoris; I50.9 Heart failure, unspecified; E78.5 Hyperlipidemia, unspecified; I48.91 Unspecified atrial fibrillation; E11.42 Type 2 diabetes mellitus with diabetic polyneuropathy; Z79.01 Long term (current) use of anticoagulants; Z79.82 Long term (current) use of aspirin; Z95.1 Presence of aortocoronary bypass graft; Z79.84 Long term (current) use of oral hypoglycemic drugs; Z95.5 Presence of coronary angioplasty implant and graft; J44.9 Chronic obstructive pulmonary disease, unspecified; G89.29 Other chronic pain; M19.90 Unspecified osteoarthritis, unspecified site; F41.9 Anxiety disorder, unspecified; Z86.73 Personal history of transient ischemic attack (TIA), and cerebral infarction without residual deficits
CPT/HCPCS: OP; A4314; C1813; J0360; J2250; J2270; J2370; J2704; J3010; J3370; J7030; J7050

== ENCOUNTER 2020-05-12 10:30 | Emergency (ER) | payer MEDICAID ==
[~2020-05-12] VITALS: Ht 177.8 cm; Wt 70.9 kg
[~2020-05-12 10:30] MED LIST changes: +COLACE 100100 MG/CAP PO; +ELIQUIS 2.5 PO; +GLUCOPHAGE500 MG/TAB PO; +NORCO 325 MG-51 TAB PO; +NORVASC 10MG10 MG PO
[2020-05-12 10:31] VITALS: TEMP 97.6
[2020-05-12 10:58] LABS: BASO # 0.1 (0.0-0.2); BASO % 0.8 % (0.0-2.0); GRAN # 9.4 (1.4-6.5); GRAN % 75.3 % (42.2-75.2); HEMATOCRIT 39.8 % (42.0-52.0); HEMOGLOBIN 13.1 g/dl (13.5-18.0); LYMPH % 15.7 % (20.0-51.0); MEAN CELL VOLUME 93 fl (80.0-100.0); MEAN CORPUSCULAR HEMOGLOBIN 31 pg (27.0-31.0); MEAN CORPUSCULAR HGB CONC 33 g/dl (33.0-37.0); MEAN PLATELET VOLUME 10.3 fl (7.4-10.4); MONO % 7.7 % (1.7-9.3); PLATELET COUNT 180 K/mm3 (130-400); RED BLOOD COUNT 4.28 M/mm3 (4.20-5.60); REDCELL DISTRIBUTION WIDTH-CV 13.9 % (11.5-14.5)
[2020-05-12 11:14] LABS: ALBUMIN 3.7 gm/dL (3.5-5.0); BILIRUBIN,TOTAL 0.7 mg/dL (0.0-1.0); CALCIUM 8.7 mg/dL (8.4-10.2); CREATININE, serum 1.23 (0.66-1.25); TOTAL PROTEIN 6.3 gm/dL (6.4-8.2)
[2020-05-12 11:52] VITALS: BP 168/86; PULSE 63
[2020-05-12 12:11] LABS: COLLECTION METHOD CLEAN CATCH
[2020-05-12 12:24] LABS: MUCOUS Present /lpf; PH 5 (5-8); SQUAMOUS EPITHELIAL 0-2 /hpf; URINE APPEARANCE Hazy; URINE BACTERIA Rare /hpf; URINE BILIRUBIN Negative (NEGATIVE); URINE BLOOD 1+ (NEGATIVE); URINE COLOR Yellow; URINE GLUCOSE Negative (NEGATIVE); URINE KETONE Negative (NEGATIVE); URINE LEUKOCYTE ESTERASE Negative (NEGATIVE); URINE NITRATE Negative (NEGATIVE); URINE PROTEIN(semi-quant) Negative (NEGATIVE); URINE RBC 0-2 /hpf; URINE UROBILINOGEN Negative (NEGATIVE)
== END 2020-05-12 12:12 | disposition home or self-care (01) ==
LOC: COL.ER 10:30
PROVIDERS: Family Medicine
DX: I95.9 Hypotension, unspecified (principal); E86.0 Dehydration; I25.10 Atherosclerotic heart disease of native coronary artery without angina pectoris; Z88.8 Allergy status to other drugs, medicaments and biological substances; Z79.01 Long term (current) use of anticoagulants; Z79.84 Long term (current) use of oral hypoglycemic drugs
CPT/HCPCS: J7120

== ENCOUNTER → 2020-05-20 | Outpatient (CLI) | payer MEDICARE, MEDICAID | LOC: COL.LAB 07:24 | DX: Z01.812 Encounter for preprocedural laboratory examination (principal); Z20.822 Contact with and (suspected) exposure to COVID-19 ==

== ENCOUNTER 2020-07-31 11:28 | Emergency (ER) | payer MEDICARE, MEDICAID ==
[~2020-07-31] VITALS: Ht 177.8 cm; Wt 68.2 kg
[2020-07-31 11:35] VITALS: BP 157/93; TEMP 97.3
[2020-07-31] MEDS ORDERED: PERCOCET 325 MG1 TAB PO (13:38)
[2020-07-31] MEDS ORDERED: FLEXERIL 1010 MG/TAB PO (13:38)
[2020-07-31 13:59] VITALS: PULSE 87
[2020-10-02] MEDS ORDERED: NEURONTIN300 MG/CAP PO (01:11)
[2020-10-02] MEDS ORDERED: NORVASC 10MG10 MG PO (01:12)
[2020-10-02] MEDS ORDERED: PROAIR HFA0.09 MG/AC IH (01:12)
[2020-10-02] MEDS ORDERED: FLONASEALLERGY NS (01:12)
[2020-10-02] MEDS ORDERED: DAZIDOX10 MG PO (01:12)
[2020-10-02] MEDS ORDERED: PREDFORTE5ML OP (01:12)
[2020-10-02] MEDS ORDERED: FLOMAX 0.40.4 MG/CAP PO (01:13)
[2020-10-02] MEDS ORDERED: COZAAR100 MG PO (01:13)
[2020-10-02] MEDS ORDERED: CORDARONE200 MG/TAB PO (01:13)
[2020-10-02] MEDS ORDERED: GLUCOPHAGE1000 MG PO (01:13)
[2020-10-02] MEDS ORDERED: LIPITOR 40MG TA40 MG PO (01:13)
[2020-10-02] MEDS ORDERED: ELIQUIS 5MG PO (01:14)
[2020-10-02] MEDS ORDERED: CATAPRES 0.1MG0.1 MG PO (01:14)
[2020-10-05] MEDS ORDERED: PLAVIX 75MG TAB75 MG PO (09:19)
[2020-10-05] MEDS ORDERED: LIPITOR 80MG80 MG PO (09:20)
[2020-10-05] MEDS ORDERED: MELATIN 3 MG-11 TAB PO (09:21)
[2020-10-05] MEDS ORDERED: MUCINEX 60600 MG/TA1 PO (09:35)
== END 2020-07-31 13:59 | disposition home or self-care (01) ==
LOC: COL.ER 11:28
DX: M54.16 Radiculopathy, lumbar region (principal); G89.29 Other chronic pain; H53.8 Other visual disturbances; R51.9 Headache, unspecified; I25.10 Atherosclerotic heart disease of native coronary artery without angina pectoris; I10 Essential (primary) hypertension; I48.91 Unspecified atrial fibrillation; F17.210 Nicotine dependence, cigarettes, uncomplicated; Z79.01 Long term (current) use of anticoagulants; Z86.73 Personal history of transient ischemic attack (TIA), and cerebral infarction without residual deficits; Z88.6 Allergy status to analgesic agent; Z79.891 Long term (current) use of opiate analgesic; Z98.890 Other specified postprocedural states
CPT/HCPCS: J2360

== ENCOUNTER 2020-10-05 10:44 | Inpatient (IN) | payer MEDICARE, MEDICAID ==
[~2020-10-05] VITALS: Ht 175.3 cm; Wt 64.5 kg
[~2020-10-05 10:44] MED LIST changes: +FLOMAX 0.40.4 MG/CAP PO; +LIPITOR 40MG TA40 MG PO; +LIPITOR 80MG80 MG PO; +MELATIN 3 MG-11 TAB PO; +MUCINEX 60600 MG/TA1 PO; +PREDFORTE5ML OP
--- NOTE | 2020-10-05 14:00 | NUR ---
Patient arrived from medical via wheelchair. Patient moved to bed with 1x assist. Patient was oriented to room, denies pain or needs, call light within reach, bed alarm on.
[2020-10-05 16:53] VITALS: BP 167/77; PULSE 67; TEMP 98.3
--- NOTE | 2020-10-05 18:36 | NUR ---
PER STAFF, PATIENT IS UNSTEADY ON FEET BUT DOOR TO ROOM SHUT AND STAFF UNABLE TO ENTER ROOM TO EVALUATE PATIENT. OBSERVED BY STAFF THAT PATIENT SITTING ON SIDE OF BED, BED ALARM GOING OFF, OBSERVED BLOODY TISSUE ON BATHROOM DOOR HANDLE AND OBSERVED OPEN SKIN WOUND TO LATERAL L ELBOW WITH DAY NURSE INFORMED OF PATIENT STATUS CURRENT.
--- NOTE | 2020-10-05 19:00 | NUR ---
RECEIVED CHANGE OF SHIFT REPORT FROM DAY SHIFT NURSE.
--- NOTE | 2020-10-05 19:00 | NUR ---
OBSERVED CHAIR ALARM GOING OFF, PATIENT FOUND IN BATHROOM, APOLIGIZED FOR GETTING UP WITHOUT ASKING FOR HELP. PATIENT PUT BACK IN W/C WITH STAFF PRESENT AND CHAIR ALARM ON.
--- NOTE | 2020-10-05 19:39 | NUR ---
PATIENT UP IN W/C, COOPERATIVE AT THIS TIME WHILE MAKING COMMENTS ABOUT NEEDING TO GET IN HIS TRUCK AND GO HOME TO FIND HIS PHONE. KEPT STATING HIS NEPHEW, CHERELLE, WORKS IN THE BASEMENT BUT DENIES HIS NEPHEW DOES NOT WORK FOR THE HOSPITAL.
[2020-10-06 05:03] VITALS: BP 114/60; PULSE 62; TEMP 97
--- NOTE | 2020-10-06 07:33 | NUR ---
CHANGE OF SHIFT REPORT GIVEN TO DAY SHIFT NURSEKIMBERLY RN.
[2020-10-06 15:52] VITALS: BP 123/74; PULSE 69; TEMP 98.1
--- NOTE | 2020-10-06 16:42 | NUR ---
Director Of Casework met with patient to discuss discharge planning. Patient lives alone in [place] and sees Dr. Weston for primary care. Patient obtains medications from [facility] with no difficulties. Patient does not have any DME at home and reports he is normally independent with ADLS. Patient designated his daughter, Gris (ph#[phone]) as DPOA-HC while he was on the acute side. Copy was placed in patient's chart. Patient states he has found someone to check in on his pets, which is a relief to him. SW will continue to follow.
--- NOTE | 2020-10-06 17:33 | NUR ---
Patient resting in bed eating dinner at this time. Patient is alert and partially oriented. Patient has been pleasant and cooperative today, a bit forgetful but much less impulsive. Patient has c/o some back and foot/ankle pain which he requested PRN pain medication for, administered per order. Patient denies further needs at this time, call light within reach.
--- NOTE | 2020-10-06 20:30 | NUR ---
PT RESTING IN BED. A&O X4. RT SIDED WEAKNESS NOTED. HAS SOME PAIN WHEN PULLING UP ON RT TOES WHEN TESTING STRENGTH. PT REPORTS HAS BEEN HAVING SOME DISCOMFORT TO RT FOOT AND ANKLE. NO SWELLING NOTED. GOOD PEDAL PULSES. GOOD SENSATION. PT REPORT HAS DIFFICULTY WITH BALANCE MORE THAN ANYTHING ELSE. M LEANS TO RIGHT. NO DIZZINESS AT THIS TIME. HAVING LOW BACK PAIN. SEE MAR FOR ROXICODONE GIVEN AT HS. CALL LIGHT IN REACH. BED ALARM SET.
[2020-10-07 05:24] VITALS: BP 136/77; PULSE 91; TEMP 98.1
[2020-10-07 05:55] VITALS: BP 162/75; PULSE 62; TEMP 97.7
--- NOTE | 2020-10-07 07:43 | NUR ---
Pt awake and alert upon entry to room, asked for pain medications, pain medications given. Shift assessments complete, left Pt call light in reach, bed in lowest position.
--- NOTE | 2020-10-07 16:23 | NUR ---
Sanitary Landfill Supervisor met with patient to follow up before the weekend. Patient advised he is doing okay but is ready to get home. SW will continue to follow up with updates from the team. SW attempted to contact patient's daughter and left a message.
[2020-10-07 17:18] VITALS: BP 165/80; PULSE 67; TEMP 97.6
--- NOTE | 2020-10-07 20:00 | NUR ---
PT REQUEST ROXICODONE FOR LOW BACK PAIN. GIVEN POST RT TX. TRANDFERRED TO BED. PT HAS POOR SAFETY JUDGEMENT. REFUSED WALKER. ASSISTED TO BED. BED ALARM SET. CALL LIGHT IN REACH.
--- NOTE | 2020-10-07 21:00 | NUR ---
PT SITTING UP IN RECLINER. RT SIDED SL WEAKER THAN LT. UNBALANCED WHEN AMB- LEANS TO LT. SEE MAR FOR ROXICODE GIVEN EARLIER FOR CHRONIC BACK PAIN. CALL LIGHT IN REACH. CHAIR ALARM SET.
[2020-10-08 05:17] VITALS: BP 184/82; PULSE 70; TEMP 97.7
[2020-10-08 05:55] VITALS: BP 133/70; PULSE 59
[2020-10-08 16:29] VITALS: BP 135/69; PULSE 62; TEMP 97.9
--- NOTE | 2020-10-08 19:46 | NUR ---
PT BED ALARM SOUNDING. PT WENT TO BR. PT NONCOMPLIANT WITH SAFETY PRECAUTIONS. TOLD RT HE WAS GOING TO GO TO THE BR ANYWAY.
--- NOTE | 2020-10-08 20:17 | NUR ---
PT RESTING IN BED. GAVE ROXICODONE FOR LOW BACK PAIN. A&OX4. CALL LIGHT IN REACH. BED ALARM SET.
--- NOTE | 2020-10-09 01:45 | NUR ---
BED ALARM SOUNDING. FOUND PT AT BOTTOM OF BED USING URINAL. PT SPILLED URINAL. CHANGED LOWER BODY CLOTHING PER SELF OTHER THAN THREADING FEET THROUGH. BACK TO BED. CALL LIGHT IN REACH. BED ALARM SET. PT APPRECIATIVE OF CARES PROVIDED.
[2020-10-09 05:25] VITALS: BP 139/81; PULSE 64; TEMP 97.6
[2020-10-09 07:27] LABS: BASO # 0.1 (0.0-0.2); BASO % 0.8 % (0.0-2.0); EOS # 0.2 (0.0-0.7); EOS % 1.7 % (0-4.0); GRAN # 6.9 (1.4-6.5); GRAN % 66.6 % (42.2-75.2); HEMATOCRIT 42.9 % (42.0-52.0); HEMOGLOBIN 14.2 g/dl (13.5-18.0); LYMPH # 2.1 (1.2-3.4); LYMPH % 20.1 % (20.0-51.0); MEAN CELL VOLUME 90 fl (80.0-100.0); MEAN CORPUSCULAR HEMOGLOBIN 30 pg (27.0-31.0); MEAN CORPUSCULAR HGB CONC 33 g/dl (33.0-37.0); MEAN PLATELET VOLUME 10.5 fl (7.4-10.4); MONO % 9.7 % (1.7-9.3); PLATELET COUNT 344 K/mm3 (130-400); RED BLOOD COUNT 4.77 M/mm3 (4.20-5.60); REDCELL DISTRIBUTION WIDTH-CV 13.3 % (11.5-14.5)
[2020-10-09 07:32] LABS: CALCIUM 9.1 mg/dL (8.4-10.2); CREATININE, serum 0.87 (0.66-1.25); MAGNESIUM 1.5 mg/dL (1.6-2.3); POTASSIUM 4.2 mmol/L (3.4-5.0)
[2020-10-09 16:52] VITALS: BP 138/68; PULSE 59; TEMP 97.3
--- NOTE | 2020-10-09 21:00 | NUR ---
PT RESTING IN BED. A&OX4. HAS CHRONIC LOW BACK AND LEFT LEG PAIN. HAD ROXICODONE EARLIER. AMB TO BR. AITTLE UNSTEADY WITH AMBULATION. HAD URINARY URGENCY AT TIMES. NO NEEDS VERBALIZED. CALL LIGHT IN REACH. BED ALARM SET.
[2020-10-10 05:13] VITALS: BP 154/86; PULSE 65; TEMP 98.2
[2020-10-10 16:24] VITALS: BP 135/65; PULSE 63; TEMP 98.3
--- NOTE | 2020-10-10 18:30 | NUR ---
Patient did well this shift. No complaints of nausea. Some generalized aching to lower back, controlled with roxicodone. He is hoping to be discharged by saturday. He gets up well but needs reminders to stand up slowly because he is a little unsteady when he first stands. No other changes at this time. Call light within reach.
--- NOTE | 2020-10-10 18:38 | NUR ---
RECEIVED CHANGE OF SHIFT REPORT FROM DAY SHIFT NURSE.
--- NOTE | 2020-10-10 19:33 | NUR ---
REPORTS HAS SOME LOW BACK/LEG PAIN, REFUSED OFFER OF TYLENOL FOR PAIN, WANTING ROXICODONE WHEN MED NEXT AVAIALALE. PATIENT STATES HE HAS PRODUCTIVE COUGH AFTER RT TREATMENTS.
--- NOTE | 2020-10-10 20:00 | NUR ---
ENCOURAGE PATIENT TO CALL STAFF TO ACCOMPANY PATIENT WHEN OUT OF BED FOR SAFETY. PATIENT VERBALIZED UNDERSTANDING. BED ALARM ON.
--- NOTE | 2020-10-11 03:06 | NUR ---
PATIENT SLEEPING, DOES NOT WAKE AT THIS TIME. BED ALARM ON
--- NOTE | 2020-10-11 05:02 | NUR ---
PATIENT SLEEPING, DOES NOT WAKE WHEN STAFF ENTERS ROOM TO UPDATE COMMINCATION BOARD. BED ALARM ON. BREATHING NONLABORED AND EVEN.
[2020-10-11 05:16] VITALS: BP 157/76; PULSE 64; TEMP 98.1
--- NOTE | 2020-10-11 07:16 | NUR ---
CHANGE OF SHIFT REPORT GIVEN TO DAY SHIFT NURSE, DEBORAH JOY. BED ALARM ON.
--- NOTE | 2020-10-11 08:15 | NUR ---
PATIENT SITTING UP IN BEDSIDE CHAIR. CHAIR ALARMS ON. PATIENT REPORTING HIS PAIN AT ABOUT A 5-6/10 ON A 0-10 SCALE AFTER TAKING THE PO OXYCODONE THIS MORNING. PATIENT STATES HIS PAIN IS MUCH BETTER THAN BEFORE. MORNING MEDICATIONS ADMINISTERED. CALL LIGHT WITHIN REACH. PATIENT DENIES ADDITIONAL NEEDS AT THIS TIME.
--- NOTE | 2020-10-11 11:50 | NUR ---
PATIENT REPORTING PAIN A 6-7/10 ON A 0-10 SCALE. PAIN PRESENT IN BACK, LEG AND FEET. PRN OXYCODONE ADMINISTERED. SHIFT ASSESSMENT COMPLETED. PATIENT SITTING UP IN BEDSIDE CHAIR AWAITING HIS LUNCH TRAY. CHAIR ALARM ON. CALL LIGHT WITHIN REACH. NO ADDITIONAL NEEDS AT THIS TIME.
--- NOTE | 2020-10-11 13:47 | NUR ---
Outside Laborer contacted patient's daughter, Gris to schedule family meeting for tomorrow, 10/12/20 @ 0839. Gris to participate by phone. Plan is for discharge , 10/13/20.
[2020-10-11 15:09] VITALS: BP 100/64; PULSE 59; TEMP 97.7
--- NOTE | 2020-10-11 17:53 | NUR ---
Reported off to Yanet PAEZ
--- NOTE | 2020-10-11 18:00 | NUR ---
CHANGE OF SHIFT REPORT RECEIVED FROM DAY SHIFT NURSE.
--- NOTE | 2020-10-11 19:05 | NUR ---
PATIENT DENIES ANY NEEDS OR CONCERNS. BED ALARM ON.
--- NOTE | 2020-10-11 19:57 | NUR ---
PATIENT UP WITH SUPERVISION IN ROOM WITH STEADY GAIT, ENCOURAGED PATIENT TO LET STAFF KNOW WHEN HE IS UP IN ROOM FOR SAFETY W/PATIENT AGREEABLE. NO PHYSICAL WEAKNESS OBSERVED WITH MOVEMENT/GAIT. SPEECH CLEAR AND APPROPRIATE. DENIES ANY DISCOMFORT OR NEEDS AT THIS TIME.
[2020-10-11 20:35] VITALS: BP 148/63
--- NOTE | 2020-10-12 03:54 | NUR ---
PATIENT SLEEPING, DOES NOT WAKE WHEN ROOM ENTERED BY STAFF. BREATHING NONLABORED AND EVEN.
[2020-10-12 05:47] VITALS: BP 161/88; PULSE 60; TEMP 98.4
--- NOTE | 2020-10-12 07:00 | NUR ---
CHANGE OF SHIFT REPORT GIVEN TO DAY SHIFT NURSE, JASSI JOY.
--- NOTE | 2020-10-12 10:40 | NUR ---
Follow-up visit; Patient doing well and thanked Engineering Aid for continuing to look in on him. Kan plans to be discharged this week.
[2020-10-12] MEDS ORDERED: OMNICEF 300MG300 MG PO (10:53)
[2020-10-12 16:15] VITALS: BP 153/64; PULSE 58; TEMP 98.3
--- NOTE | 2020-10-12 16:49 | NUR ---
Social Rasheeda attended patient conference with the therapy team. Patient requested SW not involve his daughter, Gris as she is busy at work. Patient to discharge home tomorrow with outpatient PT/OT. Patient advised he has transportation home tomorrow and has no additional questions or concerns at this time. SW contacted patient's daughter, Gris to provide update. Patient would like outpatient PT/OT to be scheduled at [facility]. KYAW contacted [facility] and scheduled patient's first appointment for 10/24 (PT @ 1430 and OT @ 1530). KYAW will fax orders tomorrow upon discharge.
--- NOTE | 2020-10-12 21:00 | NUR ---
PT MOD I IN ROOM. RELATES FEELS STEADY AND SAFE. ENC TO CALL FOR ASSIST IF NEEDED. NO NEEDS AT THIS TIME.
[2020-10-13 05:27] VITALS: BP 186/92; PULSE 67; TEMP 98.3
[2020-10-13] MEDS ORDERED: LIPITOR 80MG80 MG PO (07:30)
[2020-10-13] MEDS ORDERED: PLAVIX 75MG TAB75 MG PO (07:30)
[2020-10-13] MEDS ORDERED: COZAAR 25MG25 MG/TAB PO (07:35)
--- NOTE | 2020-10-13 11:47 | NUR ---
Discharge instructions reveiwed with patient, verbalized understanding. Discharged via wheelchair to auto/home with friend at 1148.
--- NOTE | 2020-10-13 13:52 | NUR ---
Admission QIM scores were reviewed by the team. Code of 4 chosen for toilet hygeine was determined by team discussion to be the most usual performance before interventions for this patient during the assessment period. Code of 3 chosen for toilet transfers was determined by team discussion to be the most usual performance before interventions for this patient during the assessment period. Code of 3 chosen for putting on/taking off footwear was determined by team discussion to be the most usual performance before interventions for this patient during the assessment period. Code of 4 chosen for rolling left to right was determined by team discussion to be the most usual performance before interventions for this patient during the assessment period. Code of 4 chosen for sit to lying was determined by team discussion to be the most usual performance before interventions for this patient during the assessment period. Code of 4 chosen for lying to sitting side of bed was determined by team discussion to be the most usual performance before interventions for this patient during the assessment period. Code of 3 chosen for sit to stand was determined by team discussion to be the most usual performance before interventions for this patient during the assessment period. Code of 3 chosen for chair/bed to chair transfer was determined by team discussion to be the most usual performance before interventions for this patient during the assessment period. Code of 3 chosen for walk 10 feet was determined by team discussion to be the most usual performance before interventions for this patient during the assessment period. Code of 2 chosen for walk 50 feet with 2 turns was determined by team discussion to be the most usual performance before interventions for this patient during the assessment period. Code of 88 chosen for walk 150 feet was determined by team discussion to be the most usual performance before interventions for this patient during the assessment period.
--- NOTE | 2020-10-13 14:55 | NUR ---
Discharge QIM scores were reviewed by the team. Code of 6 chosen for toilet hygiene was determined by team discussion to be the most usual performance for this patient during the assessment period. Code of 6 chosen for toilet transfers was determined by team discussion to be the most usual performance for this patient during the assessment period. Code of 6 chosen for chair/bed to chair transfer was determined by team discussion to be the most usual performance for this patient during the assessment period. Code of 6 chosen for walking 10 feet transfers was determined by team discussion to be the most usual performance for this patient during the assessment period. Code of 6 chosen for walking 150 feet lying was determined by team discussion to be the most usual performance for this patient during the assessment period.
--- NOTE | 2020-10-13 15:18 | NUR ---
Manager Financial Planning provided outpatient PT/OT appointments to patient and unit aide, who included appointment in patient's discharge paperwork. SW met with patient and presented IM form. SW reviewed the form and patient verbalized understanding then provided signature. SW placed original in chart and placed copy in chart. SW faxed records to [facility] [address].
--- NOTE | 2020-10-24 14:46 | NUR ---
VIANCA staffed with this Visor Installer regarding discharge orders for OP PT. She reports that Dolly with [facility] [place] did not receive discharge orders for the patient. SW faxed discharge orders and contacted them regarding the orders. No other needs.
== END 2020-10-13 11:50 | disposition home or self-care (01) | DRG 56 ==
PROVIDERS: ADMIT Internal Medicine
DX: I69.351 Hemiplegia and hemiparesis following cerebral infarction affecting right dominant side (principal); J18.9 Pneumonia, unspecified organism; I50.22 Chronic systolic (congestive) heart failure; R65.10 Systemic inflammatory response syndrome (SIRS) of non-infectious origin without acute organ dysfunction; E87.1 Hypo-osmolality and hyponatremia; I11.0 Hypertensive heart disease with heart failure; I95.1 Orthostatic hypotension; I25.10 Atherosclerotic heart disease of native coronary artery without angina pectoris; I48.91 Unspecified atrial fibrillation; E11.9 Type 2 diabetes mellitus without complications; E78.5 Hyperlipidemia, unspecified; E87.6 Hypokalemia; F41.9 Anxiety disorder, unspecified; G47.00 Insomnia, unspecified; I65.29 Occlusion and stenosis of unspecified carotid artery; J43.9 Emphysema, unspecified; M51.36 Other intervertebral disc degeneration, lumbar region; E83.42 Hypomagnesemia; N40.0 Benign prostatic hyperplasia without lower urinary tract symptoms; R26.9 Unspecified abnormalities of gait and mobility; R79.89 Other specified abnormal findings of blood chemistry; Z79.891 Long term (current) use of opiate analgesic; Z79.84 Long term (current) use of oral hypoglycemic drugs; Z79.52 Long term (current) use of systemic steroids; Z95.1 Presence of aortocoronary bypass graft; Z88.6 Allergy status to analgesic agent
CPT/HCPCS: 99222-AI; 99231-AI; 99232-AI; 99233-AI; 99239; J0696; J1815

== ENCOUNTER 2020-10-24 14:17 | Outpatient (RCR) | payer MEDICARE, MEDICAID ==
[~2020-10-24 14:17] MED LIST changes: +COZAAR 25MG25 MG/TAB PO; +OMNICEF 300MG300 MG PO
[2020-11-01] MEDS ORDERED: DOXYCYCLINE 10100 MG PO ×2 (15:56)
[2020-11-01] MEDS ORDERED: PERCOCET 325 MG1 TA2 PO (16:00)
[2020-11-01] MEDS ORDERED: LEVAQUIN 750MG750 M1 PO (16:00)
[2020-11-03] MEDS ORDERED: PERCOCET 325 MG1 TA2 PO (15:39)
[2020-11-21] MEDS ORDERED: FLOMAX 0.40.4 MG/CAP PO (14:13)
[2020-12-01] MEDS ORDERED: FLOMAX 0.40.4 MG/CAP PO (02:04)
[2020-12-01] MEDS ORDERED: AMOXICILLIN 8751 TAB PO (02:05)
[2020-12-05] MEDS ORDERED: FERROUS SU325 MG/TAB PO (12:13)
[2020-12-05] MEDS ORDERED: AMOXICILLIN 8751 TAB PO (12:13)
[2020-12-05] MEDS ORDERED: ROXICODONE 55 MG/TAB PO (12:16)
== END 2020-12-16 10:39 | disposition home or self-care (01) ==
LOC: MKS.ESL.PT 14:17
DX: I63.9 Cerebral infarction, unspecified (principal)

== ENCOUNTER 2020-11-01 13:14 | Emergency (ER) | payer MEDICARE, MEDICAID ==
[~2020-11-01] VITALS: Ht 175.3 cm; Wt 65.9 kg
[2020-11-01 13:52] VITALS: TEMP 98.2
[2020-11-01 14:42] LABS: BASO # 0.1 (0.0-0.2); BASO % 0.6 % (0.0-2.0); GRAN # 9.2 (1.4-6.5); GRAN % 78.7 % (42.2-75.2); HEMATOCRIT 42.2 % (42.0-52.0); HEMOGLOBIN 14.1 g/dl (13.5-18.0); LYMPH # 1.3 (1.2-3.4); LYMPH % 11.4 % (20.0-51.0); MEAN CELL VOLUME 89 fl (80.0-100.0); MEAN CORPUSCULAR HEMOGLOBIN 30 pg (27.0-31.0); MEAN CORPUSCULAR HGB CONC 33 g/dl (33.0-37.0); MEAN PLATELET VOLUME 9.5 fl (7.4-10.4); MONO % 8.5 % (1.7-9.3); PLATELET COUNT 250 K/mm3 (130-400); RED BLOOD COUNT 4.73 M/mm3 (4.20-5.60); REDCELL DISTRIBUTION WIDTH-CV 14.4 % (11.5-14.5)
[2020-11-01 14:55] LABS: ALBUMIN 4.2 gm/dL (3.5-5.0); BILIRUBIN,TOTAL 0.6 mg/dL (0.0-1.0); CALCIUM 9.1 mg/dL (8.4-10.2); CREATININE, serum 0.71 (0.66-1.25); TOTAL PROTEIN 7.2 gm/dL (6.4-8.2)
[2020-11-01 15:15] LABS: C-REACTIVE PROTEIN 0.5 mg/dL (0.0-0.9)
[2020-11-01] MEDS ORDERED: DOXYCYCLINE 10100 MG PO ×2 (15:56)
[2020-11-01] MEDS ORDERED: LEVAQUIN 750MG750 M1 PO (16:00)
[2020-11-01] MEDS ORDERED: PERCOCET 325 MG1 TA2 PO (16:00)
[2020-11-01 16:14] VITALS: BP 121/76; PULSE 89
== END 2020-11-01 16:14 | disposition home or self-care (01) ==
LOC: COL.ER 13:14
PROVIDERS: Nurse Practitioner Primary Care
DX: L03.115 Cellulitis of right lower limb (principal); I10 Essential (primary) hypertension; E78.5 Hyperlipidemia, unspecified; I25.10 Atherosclerotic heart disease of native coronary artery without angina pectoris; I48.91 Unspecified atrial fibrillation; J44.9 Chronic obstructive pulmonary disease, unspecified; E11.9 Type 2 diabetes mellitus without complications; Z79.01 Long term (current) use of anticoagulants; Z86.73 Personal history of transient ischemic attack (TIA), and cerebral infarction without residual deficits; Z88.8 Allergy status to other drugs, medicaments and biological substances; Z79.899 Other long term (current) drug therapy; Z79.02 Long term (current) use of antithrombotics/antiplatelets; Z79.84 Long term (current) use of oral hypoglycemic drugs

== ENCOUNTER 2020-11-03 13:27 | Emergency (ER) | payer MEDICARE, MEDICAID ==
[~2020-11-03] VITALS: Ht 175.3 cm; Wt 65.9 kg
[2020-11-03 13:47] VITALS: TEMP 98.1
[2020-11-03] MEDS ORDERED: PERCOCET 325 MG1 TA2 PO (15:39)
[2020-11-03 16:37] VITALS: BP 122/97; PULSE 90
== END 2020-11-03 16:40 | disposition home or self-care (01) ==
LOC: COL.ER 13:27
DX: L03.115 Cellulitis of right lower limb (principal); G89.29 Other chronic pain; E11.9 Type 2 diabetes mellitus without complications; M79.661 Pain in right lower leg; I10 Essential (primary) hypertension; E78.5 Hyperlipidemia, unspecified; I25.10 Atherosclerotic heart disease of native coronary artery without angina pectoris; I48.91 Unspecified atrial fibrillation; J44.9 Chronic obstructive pulmonary disease, unspecified; F17.210 Nicotine dependence, cigarettes, uncomplicated; Z79.01 Long term (current) use of anticoagulants; Z86.73 Personal history of transient ischemic attack (TIA), and cerebral infarction without residual deficits; Z79.899 Other long term (current) drug therapy; Z79.02 Long term (current) use of antithrombotics/antiplatelets; Z79.891 Long term (current) use of opiate analgesic; Z79.84 Long term (current) use of oral hypoglycemic drugs

== ENCOUNTER 2020-11-21 10:19 | Inpatient (IN) | payer MEDICARE, MEDICAID ==
[~2020-11-21] VITALS: Ht 175.3 cm; Wt 61.8 kg
[2020-11-21 11:16] LABS: BASO # 0.1 (0.0-0.2); BASO % 0.4 % (0.0-2.0); GRAN % 80.4 % (42.2-75.2); HEMATOCRIT 42.3 % (42.0-52.0); HEMOGLOBIN 13.6 g/dl (13.5-18.0); LYMPH # 1.4 (1.2-3.4); LYMPH % 10.5 % (20.0-51.0); MEAN CELL VOLUME 91 fl (80.0-100.0); MEAN CORPUSCULAR HEMOGLOBIN 29 pg (27.0-31.0); MEAN CORPUSCULAR HGB CONC 32 g/dl (33.0-37.0); MEAN PLATELET VOLUME 9.9 fl (7.4-10.4); MONO # 1.1 (0.1-0.6); MONO % 7.9 % (1.7-9.3); PLATELET COUNT 286 K/mm3 (130-400); RED BLOOD COUNT 4.67 M/mm3 (4.20-5.60); REDCELL DISTRIBUTION WIDTH-CV 14.4 % (11.5-14.5)
[2020-11-21 11:30] LABS: ALBUMIN 4.2 gm/dL (3.5-5.0); BILIRUBIN,TOTAL 0.6 mg/dL (0.0-1.0); C-REACTIVE PROTEIN 3.3 mg/dL (0.0-0.9); CALCIUM 9.7 mg/dL (8.4-10.2); CREATININE, serum 0.87 (0.66-1.25); POTASSIUM 4.6 mmol/L (3.4-5.0); TOTAL PROTEIN 7.9 gm/dL (6.4-8.2)
--- NOTE | 2020-11-21 13:45 | NUR ---
admission assessment completed, right foot and heel is bright red and +3 edema, is very painful to touch and unable to palpate pedal pulse, 4th and 5th toes are black and purplish white in color, Dr Page in to see patient
[2020-11-21 13:58] VITALS: BP 144/67; PULSE 70; TEMP 98.2
[2020-11-21] MEDS ORDERED: FLOMAX 0.40.4 MG/CAP PO (14:13)
--- NOTE | 2020-11-21 14:30 | NUR ---
pyrotechnics press tender in and doppler completed, c/o pain and medicated with roxicodoen 5mg po
--- NOTE | 2020-11-21 14:30 | NUR ---
spoke with VIANCA Galvan regarding what [employer] says about arterial blood flow on the right lower extremity, will still obtain MRI of right foot, up and into WC and to radiology for MRI
--- NOTE | 2020-11-21 14:57 | NUR ---
VIANCA Pan notified of consult
--- NOTE | 2020-11-21 15:25 | NUR ---
mapping technician returned patient to room and stated was unable to complete dur to patient not able to hold still due to pain, medicated with moprhine 2mg slow IV
[2020-11-21 15:39] VITALS: BP 137/69; PULSE 70; TEMP 97.6
--- NOTE | 2020-11-21 15:43 | NUR ---
automotive technician instructor returned and taking patient back down for MRI
--- NOTE | 2020-11-21 16:20 | NUR ---
returned from MRI again and was unable to complete due to pain, tech states the patient was then refusing due to pain, VIANCA Galvan notified, will reschedule for tomorrow
--- NOTE | 2020-11-21 16:32 | NUR ---
VIANCA Pan in to see patient
--- NOTE | 2020-11-21 16:42 | NUR ---
was able to find weak pedal pulse with doppler and this was also heard by VIANCA Pan
--- NOTE | 2020-11-21 16:52 | NUR ---
had supper and tolerated well, newe IV started in right forearm
[2020-11-21 18:54] VITALS: BP 158/65; PULSE 71; TEMP 98.1
[2020-11-21 23:28] VITALS: BP 153/67; PULSE 76; TEMP 97
[2020-11-22 04:01] VITALS: BP 139/93; PULSE 59; TEMP 98.6
--- NOTE | 2020-11-22 04:37 | NUR ---
PATIENT ALERT AND ORIENTED. C/O OF PAIN IN LEFT LEG, MEDICATED WITH OXYCODONE AND MORPHINE. IVF AND ABX GIVEN ORDERED. LEFT LEG WITH REDNESS TO CHIN AND TOP OF FOOT. FAINT PETAL PULSE PALPATE WITH DOPPLER. ABD SOFT, +BSX4, LARGE BM LAST NIGHT. WILL CONTINUE TO MONITOR.
[2020-11-22 07:03] LABS: BASO # 0.1 (0.0-0.2); BASO % 0.8 % (0.0-2.0); GRAN # 8.3 (1.4-6.5); GRAN % 67.5 % (42.2-75.2); HEMATOCRIT 42.3 % (42.0-52.0); HEMOGLOBIN 13.6 g/dl (13.5-18.0); LYMPH # 2.6 (1.2-3.4); LYMPH % 20.9 % (20.0-51.0); MEAN CELL VOLUME 91 fl (80.0-100.0); MEAN CORPUSCULAR HEMOGLOBIN 29 pg (27.0-31.0); MEAN CORPUSCULAR HGB CONC 32 g/dl (33.0-37.0); MEAN PLATELET VOLUME 10.5 fl (7.4-10.4); MONO # 1.3 (0.1-0.6); MONO % 10.2 % (1.7-9.3); PLATELET COUNT 269 K/mm3 (130-400); RED BLOOD COUNT 4.65 M/mm3 (4.20-5.60); REDCELL DISTRIBUTION WIDTH-CV 14.4 % (11.5-14.5)
[2020-11-22 07:11] LABS: CREATININE, serum 0.69 (0.66-1.25); POTASSIUM 3.4 mmol/L (3.4-5.0)
[2020-11-22 07:27] VITALS: BP 155/91; PULSE 65; TEMP 98.3
[2020-11-22 11:51] VITALS: BP 150/63; PULSE 63; TEMP 97.7
--- NOTE | 2020-11-22 12:00 | NUR ---
First visit from the game tester. No needs right now.
[2020-11-22 16:28] VITALS: BP 141/62; PULSE 63; TEMP 97.8
--- NOTE | 2020-11-22 18:23 | NUR ---
Patient doing well throughout the day. Complains of pain to RLE; medications given per orders. Fluids and antibiotics infusing per orders to left wrist IV. RLE appears purple with multiple abrasions throughout the foot. Doppler for pedal pulses on RLE. Ativan and morphine given prior to MRI. Denies further needs at this time. Will report off to manager shift.
--- NOTE | 2020-11-22 19:29 | NUR ---
REPORT RECEIVED FROM RUFINO STOCKTON. PATIENT JUST GOT BACK FROM MRI, ONLY DID PARTIAL MRI DUE TO PAIN. ROXYCODONE 10 MG GIVEN FOR 9/10 RIGH LEG PAIN. PATIENT ALERT AND ORIENTED X4. CONSENT SIGN FOR PROCEDURE TOMORROW. CALL LIGHT WITHIN REACH. RESTING IN BED. WILL CONTINUE TO MONITOR.
[2020-11-22 19:33] LABS: HEMATOCRIT 38.8 % (42.0-52.0); HEMOGLOBIN 12.8 g/dl (13.5-18.0); MEAN CELL VOLUME 89 fl (80.0-100.0); MEAN CORPUSCULAR HEMOGLOBIN 29 pg (27.0-31.0); MEAN CORPUSCULAR HGB CONC 33 g/dl (33.0-37.0); PLATELET COUNT 264 K/mm3 (130-400); RED BLOOD COUNT 4.35 M/mm3 (4.20-5.60); REDCELL DISTRIBUTION WIDTH-CV 14.1 % (11.5-14.5)
[2020-11-22 19:49] VITALS: BP 137/57; PULSE 55; TEMP 98.4
[2020-11-23] VITALS (7 sets, daily range): BP systolic 107–166; BP diastolic 61–84; PULSE 59–65; TEMP 07.4
--- NOTE | 2020-11-23 04:53 | NUR ---
PATIENT WAS DISORIENT DURING NIGHT, TRANSFER HIMSELT TO RECLINER WITHOUT KNOWING WHERE HE WAS. PATIENT PULLED OUT HIS IV ON R FA. NEW IV ACCESS PLACE IN L FA. BED ALARM ON, LOCKED AND ON LOW POSITION. NPO FOR PROCEDURE TODAY. IV ABX INFUSING. WILL CONTINUE TO MONITOR.
[2020-11-23 06:53] LABS: HEMATOCRIT 40.1 % (42.0-52.0); HEMOGLOBIN 13.1 g/dl (13.5-18.0); MEAN CELL VOLUME 89 fl (80.0-100.0); MEAN CORPUSCULAR HEMOGLOBIN 29 pg (27.0-31.0); MEAN CORPUSCULAR HGB CONC 33 g/dl (33.0-37.0); MEAN PLATELET VOLUME 10.1 fl (7.4-10.4); PLATELET COUNT 288 K/mm3 (130-400); RED BLOOD COUNT 4.49 M/mm3 (4.20-5.60)
[2020-11-23 06:57] LABS: INR 1.1 (0.8-3.0); PROTHROMBIN TIME 12.4 SECONDS (9.7-12.8)
[2020-11-23 07:00] LABS: PARTIAL THROMBOPLASTIN TIME 35.2 SECONDS (26.0-37.0)
--- NOTE | 2020-11-23 07:00 | NUR ---
Report received from RUFINO Dumont. PT in bed resting, snoring softly, will continue to monitor.
[2020-11-23 07:12] LABS: CALCIUM 8.7 mg/dL (8.4-10.2); CREATININE, serum 0.65 (0.66-1.25); POTASSIUM 3.6 mmol/L (3.4-5.0)
--- NOTE | 2020-11-23 09:00 | NUR ---
Assessment charted. PT c/o pain to RLE at 8/10, PRN pain meds given per request. Pt NPO for procedure today, called Practical Nurse Clinical Coordinator and confirmed to hold lovenox per Dr. Robertson. Pt denies other needs, able to answer all orientation questions. R foot 4th and 5th toe black area in appearance, unable to successfully hear pulses on dopplar in RLE. Will continue to monitor.
--- NOTE | 2020-11-23 10:55 | NUR ---
(late entry 11/22) Veterans Contact Representative attempted to meet with the patient but he was on the phone and asked this SW to return.
--- NOTE | 2020-11-23 14:40 | NUR ---
Flight Crew Ordnanceman met with the patient to complete intake. The patient is independent and lives alone in [place]. He states his children live in [place] but he has local supports. The patient has a cane that he uses occasionally. The patient does not use oxygen at baseline but is currently on 2L. The patient's PCP is Dr. Harvey. The patient has advanced directives in the EMR. The DPOA-HC designates his daughter, Gris Menchaca #[phone]. The patient plans to return home at discharge. KYAW discussed home health services and the patient declined. SW staffed with the patient's nurse. The patient is to be tentatively transferred to [facility] for a surgery. However, [facility] did not have beds available this day. The patient may tentatively be transferred on 11/24. *Discharge disposition at this time: Awaiting bed availablity at [facility]
--- NOTE | 2020-11-23 17:36 | NUR ---
Pt agreeable to plan for possible transfer to ST in am if beds available where they can do this procedure. Taking PO well now that he knows he can eat until midnight. Denies needs, will continue to monitor and give bedside shift report to nightshift nurse who will resume care.
--- NOTE | 2020-11-23 19:43 | NUR ---
REPORT RECEIVED FROM NURSE EVA. PATIENT A+OX4, RESTING IN BED. ON NO APPARENT DISTRESS, ON 2L NC NO SOB NOTED. CALL WITHIN REACH.
[2020-11-24 03:43] VITALS: BP 154/63; PULSE 61; TEMP 98.4
[2020-11-24 06:43] LABS: BASO # 0.1 (0.0-0.2); BASO % 0.7 % (0.0-2.0); GRAN # 7.2 (1.4-6.5); GRAN % 67.5 % (42.2-75.2); HEMOGLOBIN 12.4 g/dl (13.5-18.0); LYMPH # 2.1 (1.2-3.4); LYMPH % 19.6 % (20.0-51.0); MEAN CELL VOLUME 90 fl (80.0-100.0); MEAN CORPUSCULAR HEMOGLOBIN 29 pg (27.0-31.0); MEAN CORPUSCULAR HGB CONC 33 g/dl (33.0-37.0); MEAN PLATELET VOLUME 10.6 fl (7.4-10.4); MONO # 1.2 (0.1-0.6); MONO % 11.6 % (1.7-9.3); PLATELET COUNT 280 K/mm3 (130-400); RED BLOOD COUNT 4.24 M/mm3 (4.20-5.60); REDCELL DISTRIBUTION WIDTH-CV 14.1 % (11.5-14.5)
[2020-11-24 06:56] LABS: CALCIUM 8.4 mg/dL (8.4-10.2); CREATININE, serum 0.7 (0.66-1.25); POTASSIUM 3.7 mmol/L (3.4-5.0)
[2020-11-24 07:13] VITALS: BP 137/61; PULSE 66; TEMP 97.6
--- NOTE | 2020-11-24 09:00 | NUR ---
Underwriting Specialist attended clinical rounds with the team. The patient is independent and is currently on 2L of oxgyen he is not on oxygen at baseline. [facility] has no beds at this time. [facility] is full. Hospitalist to contact [facility]. *Discharge disposition at this time: Discharge pending bed availabilty for transfer*
--- NOTE | 2020-11-24 09:00 | NUR ---
Patient alert and oriented, answers questions appropriately. See assessment. RLE with 1+ edema and redness noted. Pulses per doppler to RLE. Patient c/o occasional sharp pain to RLE, especially when ambulating. FWB. No other c/o at this time.
[2020-11-24 11:07] VITALS: BP 105/79; PULSE 62; TEMP 98
--- NOTE | 2020-11-24 11:17 | NUR ---
The patient was accepted in [facility] and will tentatively be transferred this day.
[2020-11-24 13:16] VITALS: BP 105/79; PULSE 62; TEMP 98
--- NOTE | 2020-11-24 13:53 | NUR ---
Patient transferred via EMS to [place] [facility] ED at 1450. Report called to RUFINO Florence. Paperwork sent.
== END 2020-11-24 13:50 | disposition short-term general hospital (02) | DRG 299 ==
LOC: COL.ER 10:19 → SURG 11:58
PROVIDERS: Emergency Medicine; Nurse Practitioner; Physician Assistant; ADMIT Student in an Organized Health Care Education/Training Program
DX: E11.51 Type 2 diabetes mellitus with diabetic peripheral angiopathy without gangrene (principal); J96.01 Acute respiratory failure with hypoxia; L03.115 Cellulitis of right lower limb; I50.22 Chronic systolic (congestive) heart failure; E44.0 Moderate protein-calorie malnutrition; I70.221 Atherosclerosis of native arteries of extremities with rest pain, right leg; J43.9 Emphysema, unspecified; I65.21 Occlusion and stenosis of right carotid artery; E78.5 Hyperlipidemia, unspecified; I11.0 Hypertensive heart disease with heart failure; I25.10 Atherosclerotic heart disease of native coronary artery without angina pectoris; N40.0 Benign prostatic hyperplasia without lower urinary tract symptoms; G47.00 Insomnia, unspecified; F41.9 Anxiety disorder, unspecified; G89.29 Other chronic pain; F17.210 Nicotine dependence, cigarettes, uncomplicated; I48.91 Unspecified atrial fibrillation; M47.896 Other spondylosis, lumbar region; Z68.20 Body mass index [BMI] 20.0-20.9, adult; Z86.73 Personal history of transient ischemic attack (TIA), and cerebral infarction without residual deficits; Z95.1 Presence of aortocoronary bypass graft; Z79.84 Long term (current) use of oral hypoglycemic drugs; Z79.01 Long term (current) use of anticoagulants; Z79.02 Long term (current) use of antithrombotics/antiplatelets; Z88.6 Allergy status to analgesic agent; Z79.891 Long term (current) use of opiate analgesic
CPT/HCPCS: 99223-AI; 99232-AI; 99239; J1650; J1815; J2060; J2270; J2405; J2543; J3370; J7030; J7050

== ENCOUNTER 2020-11-30 16:26 | Inpatient (IN) | payer MEDICARE, MEDICAID ==
[~2020-11-30] VITALS: Ht 175.3 cm; Wt 62.4 kg
[2020-11-30 19:38] LABS: BASO # 0.1 (0.0-0.2); BASO % 0.6 % (0.0-2.0); GRAN # 10.4 (1.4-6.5); GRAN % 71.1 % (42.2-75.2); HEMATOCRIT 37.1 % (42.0-52.0); HEMOGLOBIN 11.9 g/dl (13.5-18.0); LYMPH # 2.6 (1.2-3.4); LYMPH % 17.5 % (20.0-51.0); MEAN CELL VOLUME 90 fl (80.0-100.0); MEAN CORPUSCULAR HEMOGLOBIN 29 pg (27.0-31.0); MEAN CORPUSCULAR HGB CONC 32 g/dl (33.0-37.0); MEAN PLATELET VOLUME 9.8 fl (7.4-10.4); MONO # 1.4 (0.1-0.6); MONO % 9.4 % (1.7-9.3); PLATELET COUNT 487 K/mm3 (130-400); RED BLOOD COUNT 4.12 M/mm3 (4.20-5.60); REDCELL DISTRIBUTION WIDTH-CV 14.5 % (11.5-14.5)
[2020-11-30 19:53] LABS: ALBUMIN 4.3 gm/dL (3.5-5.0); BILIRUBIN,TOTAL 1.3 mg/dL (0.0-1.0); C-REACTIVE PROTEIN 2.8 mg/dL (0.0-0.9); CALCIUM 9.9 mg/dL (8.4-10.2); CREATININE, serum 0.63 (0.66-1.25); POTASSIUM 3.1 mmol/L (3.4-5.0); TOTAL PROTEIN 8.3 gm/dL (6.4-8.2)
[2020-11-30 19:59] LABS: ERYTHROCYTE SEDIMENTATION RATE 75 mm/hr (0-30)
[2020-11-30 20:04] LABS: PROTHROMBIN TIME 11.4 SECONDS (9.7-12.8)
[2020-11-30 20:07] LABS: PARTIAL THROMBOPLASTIN TIME 30.5 SECONDS (26.0-37.0)
[2020-12-01] MEDS ORDERED: FLOMAX 0.40.4 MG/CAP PO (02:04)
[2020-12-01] MEDS ORDERED: AMOXICILLIN 8751 TAB PO (02:05)
--- NOTE | 2020-12-01 03:13 | NUR ---
Vancomycin Initial Dosing Pharmacy Note Ordering provider: Isabell Mccollum Indication/duration: Foot infection/ 7 days Relevant comorbidities: HTN, DM, HFrEF LABS: WBC = 14.7, SCr = 0.63 (Capped at 0.8) Recommendation: Will draw troughs and follow levels. Loading dose: 1 gram Maintenance dose: 750 mg every 12 hours Trough goal: 10-15 ug/mL
[2020-12-01 07:47] LABS: BASO # 0.1 (0.0-0.2); BASO % 0.6 % (0.0-2.0); GRAN # 8.5 (1.4-6.5); GRAN % 72.3 % (42.2-75.2); HEMOGLOBIN 10.6 g/dl (13.5-18.0); LYMPH # 1.9 (1.2-3.4); LYMPH % 16.1 % (20.0-51.0); MEAN CELL VOLUME 90 fl (80.0-100.0); MEAN CORPUSCULAR HEMOGLOBIN 29 pg (27.0-31.0); MEAN CORPUSCULAR HGB CONC 32 g/dl (33.0-37.0); MEAN PLATELET VOLUME 9.8 fl (7.4-10.4); MONO # 1.2 (0.1-0.6); PLATELET COUNT 419 K/mm3 (130-400); RED BLOOD COUNT 3.64 M/mm3 (4.20-5.60); REDCELL DISTRIBUTION WIDTH-CV 14.6 % (11.5-14.5)
[2020-12-01 07:50] LABS: CALCIUM 8.8 mg/dL (8.4-10.2); CREATININE, serum 0.58 (0.66-1.25); POTASSIUM 3.8 mmol/L (3.4-5.0)
[2020-12-01 08:00] LABS: HEMATOCRIT 32.7 % (42.0-52.0)
[2020-12-01 08:09] VITALS: BP 142/64; PULSE 70; TEMP 98.3
--- NOTE | 2020-12-01 09:00 | NUR ---
CONTACTED FOR CONSULT.
--- NOTE | 2020-12-01 10:23 | NUR ---
SW met with patient to complete intake. Patient states that he lives at home alone in [facility]. Patient provides that his daughter is next of kin Gris [phone] and is also documented as his DPOA-HC. Patient provides that he does not utilize DME, is independent with ADL's, and does not utilize any HH services at this time. Patient states that his PCP is Dr. Weston, pharmacy is [facility] and is able to afford his medications. Patient states that his plan is to return to his home [place] and has no concerns with doing so. SW will continue to follow. Plan: Home
--- NOTE | 2020-12-01 11:01 | NUR ---
This nurse was instructed by Dr. Murphy to stop patient's heparin drip and to cover incision on right groin area. [place] were seeping sanguineous drainage. Will continue to monitor patient throughout shift.
--- NOTE | 2020-12-01 11:15 | NUR ---
PICC line placed by RUFINO Tarango. Will continue to monitor patient throughout [facility].
[2020-12-01 11:26] VITALS: BP 139/66; PULSE 62; TEMP 98.2
--- NOTE | 2020-12-01 13:54 | NUR ---
SW informed by nurse that patient could be potentially transferred to [place] due to clinical need. SW will continue to follow.
[2020-12-01 15:49] VITALS: BP 154/71; PULSE 66; TEMP 98.3
[2020-12-01 19:08] VITALS: BP 131/65; PULSE 62; TEMP 98
--- NOTE | 2020-12-01 19:14 | NUR ---
RECEIVED CHANGE OF SHIFT REPORT FROM DAY SHIFT NURSE.
[2020-12-01 23:48] VITALS: BP 140/68; PULSE 64; TEMP 98.3
[2020-12-02 04:15] VITALS: BP 153/70; PULSE 59; TEMP 98.7
--- NOTE | 2020-12-02 05:13 | NUR ---
REPORTS SCD IS TO PAINFUL TO WEAR TO BLE, AFRAID TO WEAR TO UNAFFECTED LE.
--- NOTE | 2020-12-02 06:54 | NUR ---
CHANGE OF SHIFT REPORT GIVEN TO DAY SHIFT NURSES, GUSTAVO RN AND CHAD JOY.
--- NOTE | 2020-12-02 07:02 | NUR ---
Report received from RUFINO Ricardo. Patient is resting comfortably in bed. Patient states pain is 7/10 but is not constant in right foot. Call light and bedside table are within reach. Will continue to monitor throughout shift.
[2020-12-02 07:16] LABS: BASO # 0.1 (0.0-0.2); BASO % 0.7 % (0.0-2.0); GRAN # 8.4 (1.4-6.5); GRAN % 75.9 % (42.2-75.2); HEMOGLOBIN 11.1 g/dl (13.5-18.0); LYMPH # 1.5 (1.2-3.4); LYMPH % 13.1 % (20.0-51.0); MEAN CELL VOLUME 93 fl (80.0-100.0); MEAN CORPUSCULAR HEMOGLOBIN 30 pg (27.0-31.0); MEAN CORPUSCULAR HGB CONC 32 g/dl (33.0-37.0); PLATELET COUNT 444 K/mm3 (130-400); RED BLOOD COUNT 3.76 M/mm3 (4.20-5.60); REDCELL DISTRIBUTION WIDTH-CV 15.1 % (11.5-14.5)
[2020-12-02 07:17] LABS: HEMATOCRIT 34.9 % (42.0-52.0)
[2020-12-02 07:23] LABS: CALCIUM 8.6 mg/dL (8.4-10.2); CREATININE, serum 0.7 (0.66-1.25); MAGNESIUM 1.8 mg/dL (1.6-2.3); POTASSIUM 3.9 mmol/L (3.4-5.0)
[2020-12-02 07:52] VITALS: BP 137/64; PULSE 68; TEMP 97.9
--- NOTE | 2020-12-02 10:54 | NUR ---
Initial visit; Patient thanked Superintendent Drivers for looking in on him and offering God's blessings.
[2020-12-02 11:49] VITALS: BP 152/67; PULSE 63; TEMP 98.1
--- NOTE | 2020-12-02 14:00 | NUR ---
Patient was trying to sit up in bed when this nurse noticed his Tshirt was soaked with light pink blood and so was his bed protector. This nurse assessed patient's wound on right groin; sutures are in tact but wound continues to seep serosanguinous blood. This nurse put patient in a gown and changed linens. Will continue to monitor patient throughout shift.
[2020-12-02 16:48] VITALS: BP 141/72; PULSE 65; TEMP 97.6
[2020-12-02 19:35] VITALS: BP 113/55; PULSE 59; TEMP 98.3
--- NOTE | 2020-12-02 21:00 | NUR ---
PT RESTING IN BED. HAVING SEVERE JOLTING PAIN IN RT TOES. SEE MAR FOR PAIN MEDS GIVEN. SHIFT ASSESSMENT COMPLETED.
--- NOTE | 2020-12-02 23:04 | NUR ---
2215- REPORT RECIEVED, CARE ASSUMED. PT RATING PAIN 10/20. DILUADID GIVEN. POC REVIEW. TEGADERM CHANGED TO RT GROIN, RED AND SMALL BLOODY DRAINAGE.
[2020-12-02 23:58] VITALS: BP 130/52; PULSE 62; TEMP 98.2
[2020-12-03 04:15] VITALS: BP 144/78; PULSE 67; TEMP 97.9
--- NOTE | 2020-12-03 04:23 | NUR ---
slept well overnight. changed tegderm to rt groin seeping bloody drainage. gown changed. zosyn and fluids running. needs met.
--- NOTE | 2020-12-03 06:34 | NUR ---
rested through the night with pain med on board. Needs met.
[2020-12-03 07:13] VITALS: BP 143/67; PULSE 64; TEMP 98
[2020-12-03 07:48] LABS: MEAN CELL VOLUME 91 fl (80.0-100.0); MEAN CORPUSCULAR HGB CONC 32 g/dl (33.0-37.0); MEAN PLATELET VOLUME 9.8 fl (7.4-10.4); PLATELET COUNT 419 K/mm3 (130-400); RED BLOOD COUNT 3.33 M/mm3 (4.20-5.60); REDCELL DISTRIBUTION WIDTH-CV 15.1 % (11.5-14.5)
[2020-12-03 07:49] LABS: HEMATOCRIT 30.3 % (42.0-52.0); HEMOGLOBIN 9.7 g/dl (13.5-18.0); MEAN CORPUSCULAR HEMOGLOBIN 29 pg (27.0-31.0)
[2020-12-03 07:57] LABS: CALCIUM 8.3 mg/dL (8.4-10.2); CREATININE, serum 0.73 (0.66-1.25); POTASSIUM 3.7 mmol/L (3.4-5.0)
--- NOTE | 2020-12-03 08:09 | NUR ---
Vancomycin Follow-up Pharmacy Note Current regimen: VANCOMYCIN 750 MG Q12H Vancomycin trough: 8.8 Adjustments: INCREASE TO VANCOMYCIN 1 G Q12H. RENAL FXN STABLE
--- NOTE | 2020-12-03 08:45 | NUR ---
Pt progressing w/ plan of care. Pt reports pain to RLE, pt. requesting PO oxycodone. Pt agreeable w/ plan of care and makes needs known.
[2020-12-03 11:43] VITALS: BP 146/64; PULSE 68; TEMP 98.8
--- NOTE | 2020-12-03 12:58 | NUR ---
Patient's R groin area from previous procedure observed by this RN. [place] in place. Area noted to be red and edema present. The site to the right groin is hard to touch and the skin appears to be tight. There is oozing of jasmina blood underneath the tegaderm where the jer are in place. The physician's day care assistant Sarah notified of groin area, Sarah at bedside at this time with this freelance copywriter and RN Heena to assess the groin. Sarah reports she will speak with Dr. Valenzuela to discuss the plan of care.
--- NOTE | 2020-12-03 14:00 | NUR ---
VIANCA Smith notified patient is on a regular diet and not carb control. VIANCA Smith would like to hold off on changing the diet order at this time.
--- NOTE | 2020-12-03 14:34 | NUR ---
SCDs ordered for this patient per physician, pt. refusing to wear SCDs.
[2020-12-03 16:00] VITALS: BP 130/63; PULSE 61; TEMP 98.3
--- NOTE | 2020-12-03 17:37 | NUR ---
Pt. progressing w/ plan of care. Pt. medicated w/ oxycodone for 8/10 pain. Pt. sitting up in bed eating dinner. Pt. denies further needs at this time. Plan for this commercial underwriter to change dressing to R groin prior to shift change.
--- NOTE | 2020-12-03 19:13 | NUR ---
Pt sleeping during bedside shift report
[2020-12-03 19:55] VITALS: BP 127/60; PULSE 67; TEMP 98.2
--- NOTE | 2020-12-03 21:48 | NUR ---
Pt has been well. Pain rated 5/10. Vss. Will continue to monitor.
[2020-12-03 23:47] VITALS: BP 134/61; PULSE 65; TEMP 99.2
[2020-12-04 03:31] VITALS: BP 130/59; PULSE 63; TEMP 98.4
--- NOTE | 2020-12-04 05:53 | NUR ---
Pt right groin has been bleeding. Dressing was changed.
[2020-12-04 06:22] LABS: MEAN CELL VOLUME 91 fl (80.0-100.0); MEAN CORPUSCULAR HGB CONC 32 g/dl (33.0-37.0); MEAN PLATELET VOLUME 9.9 fl (7.4-10.4); PLATELET COUNT 401 K/mm3 (130-400); RED BLOOD COUNT 3.25 M/mm3 (4.20-5.60); REDCELL DISTRIBUTION WIDTH-CV 15.1 % (11.5-14.5)
[2020-12-04 06:32] LABS: HEMATOCRIT 29.4 % (42.0-52.0); HEMOGLOBIN 9.4 g/dl (13.5-18.0); MEAN CORPUSCULAR HEMOGLOBIN 29 pg (27.0-31.0)
[2020-12-04 06:38] LABS: CALCIUM 8.2 mg/dL (8.4-10.2); CREATININE, serum 0.67 (0.66-1.25); POTASSIUM 3.8 mmol/L (3.4-5.0)
[2020-12-04 07:20] VITALS: BP 152/82; PULSE 74
[2020-12-04 07:47] LABS: LYMPHOCYTE 11 % (20.0-51.0); NEUTROPHILS 82 % (42.0-75.2); PLATELET ESTIMATE NORMAL (NORMAL)
[2020-12-04 07:49] LABS: OVALOCYTES 1+
--- NOTE | 2020-12-04 08:42 | NUR ---
Patient is lying in bed, alert and oriented, reports pain of 8, PRN provided. Linens changed since he is incontinent. Meds provided. Right groin incition with jer and drainage, dresing changed to gauze. Lower foot with necrosis in the 4th and 5th toe, lateral foot with lines of necrotic tissue. Edema present. Continue monitoring. No further needs at this time. Call light within reach.
[2020-12-04 12:51] VITALS: BP 145/64; PULSE 65; TEMP 97.6
--- NOTE | 2020-12-04 13:28 | NUR ---
Patient asks for pain medication, he is lying in bed, rates 8 out of 10. PRN provided.
[2020-12-04 15:44] VITALS: BP 130/62; PULSE 63; TEMP 98.2
--- NOTE | 2020-12-04 17:33 | NUR ---
Patient laying in bed, has some concerns about discharging home tomorrow and asked about DME. SS notified. VSS. IV CDI. No further needs expressed from the patient. Call light within reach. Bed alarm on
--- NOTE | 2020-12-04 17:52 | NUR ---
Patient has being doing ok along the day. He received the antibiotics as scheduled. Continues with pain in his right foot. Pain medication provided as needed. Patient is resting in bed right now, no further needs at this time. Call light within reach.
[2020-12-04 19:35] VITALS: BP 143/70; PULSE 63; TEMP 98.3
--- NOTE | 2020-12-04 22:37 | NUR ---
Pt is ok but want his pain pills more often than ordered.Pain rated 7/10. Vss. Will continue to monitor.
[2020-12-04 23:52] VITALS: BP 127/66; PULSE 56; TEMP 98.7
[2020-12-05 03:47] VITALS: BP 111/86; PULSE 61; TEMP 98.3
--- NOTE | 2020-12-05 05:28 | NUR ---
Pt right groin is still bleeding. Dressing was changed.
[2020-12-05 06:56] LABS: MEAN CELL VOLUME 91 fl (80.0-100.0); MEAN CORPUSCULAR HGB CONC 32 g/dl (33.0-37.0); PLATELET COUNT 422 K/mm3 (130-400); RED BLOOD COUNT 3.31 M/mm3 (4.20-5.60); REDCELL DISTRIBUTION WIDTH-CV 15.4 % (11.5-14.5)
[2020-12-05 07:02] LABS: HEMATOCRIT 30.2 % (42.0-52.0); HEMOGLOBIN 9.7 g/dl (13.5-18.0); MEAN CORPUSCULAR HEMOGLOBIN 29 pg (27.0-31.0)
[2020-12-05 07:15] LABS: C-REACTIVE PROTEIN 5.1 mg/dL (0.0-0.9); CALCIUM 8.3 mg/dL (8.4-10.2); CREATININE, serum 0.79 (0.66-1.25); MAGNESIUM 1.7 mg/dL (1.6-2.3); POTASSIUM 3.9 mmol/L (3.4-5.0)
[2020-12-05 07:45] VITALS: BP 137/71; PULSE 60; TEMP 98.1
[2020-12-05 08:11] LABS: BASOPHIL 2 % (0-2); EOSINOPHIL 3 % (0-4); LYMPHOCYTE 16 % (20.0-51.0); NEUTROPHILS 67 % (42.0-75.2)
[2020-12-05 08:12] LABS: ANISOCYTOSIS 1+; HYPOCHROMIA 2+; PLATELET ESTIMATE INCREASED (NORMAL)
--- NOTE | 2020-12-05 08:30 | NUR ---
Patient is lying in bed with TV on. Alert and oriented x 4. vital signs stable. Complains of pain in his right foot, PRN provided. The incition in his right groin is warm and inflamated, it presents drainage, dressing to be changed. No further needs at this time. Call light within reach.
[2020-12-05 11:38] VITALS: BP 101/75; PULSE 65; TEMP 97.9
[2020-12-05] MEDS ORDERED: FERROUS SU325 MG/TAB PO (12:13)
[2020-12-05] MEDS ORDERED: AMOXICILLIN 8751 TAB PO (12:13)
[2020-12-05] MEDS ORDERED: ROXICODONE 55 MG/TAB PO (12:16)
--- NOTE | 2020-12-05 14:08 | NUR ---
Patient was discharged at 1300, a friend came to the ED door to pick him up. Patient received dishcage instructions and ll questions were ansered. The PICC was removed by Mariposa RN, the dressing in the groin was chanded. Supplies were provided (gauze 4x4 and tegaderm). Patient wanted to take the wheelchair with him since he was sure the hospital will give him the wheelchair, but we clarified with PT that it was a misconception from the patient. Patient was adviced of where he can get medical supplies.
== END 2020-12-05 13:00 | disposition home or self-care (01) | DRG 300 ==
LOC: COL.ER 16:26 → SURG 23:55
PROVIDERS: Emergency Medicine; Internal Medicine; Nurse Practitioner Family; Physician Assistant; ADMIT Internal Medicine
PROC: 02HV33Z Insertion of Infusion Device into Superior Vena Cava, Percutaneous Approach (ICD-10-PCS; principal; 2020-12-01)
DX: E11.52 Type 2 diabetes mellitus with diabetic peripheral angiopathy with gangrene (principal); I50.22 Chronic systolic (congestive) heart failure; L03.115 Cellulitis of right lower limb; L76.32 Postprocedural hematoma of skin and subcutaneous tissue following other procedure; I70.261 Atherosclerosis of native arteries of extremities with gangrene, right leg; I25.10 Atherosclerotic heart disease of native coronary artery without angina pectoris; L97.513 Non-pressure chronic ulcer of other part of right foot with necrosis of muscle; I11.0 Hypertensive heart disease with heart failure; I48.91 Unspecified atrial fibrillation; J44.9 Chronic obstructive pulmonary disease, unspecified; N40.0 Benign prostatic hyperplasia without lower urinary tract symptoms; M51.36 Other intervertebral disc degeneration, lumbar region; D64.9 Anemia, unspecified; I67.2 Cerebral atherosclerosis; D47.3 Essential (hemorrhagic) thrombocythemia; E83.42 Hypomagnesemia; E87.6 Hypokalemia; K59.00 Constipation, unspecified; E78.5 Hyperlipidemia, unspecified; F41.9 Anxiety disorder, unspecified; F17.210 Nicotine dependence, cigarettes, uncomplicated; Y83.9 Surgical procedure, unspecified as the cause of abnormal reaction of the patient, or of later complication, without mention of misadventure at the time of the procedure; Z79.01 Long term (current) use of anticoagulants; Z79.891 Long term (current) use of opiate analgesic; Z79.84 Long term (current) use of oral hypoglycemic drugs; Z95.1 Presence of aortocoronary bypass graft; Z86.73 Personal history of transient ischemic attack (TIA), and cerebral infarction without residual deficits; Z88.6 Allergy status to analgesic agent
CPT/HCPCS: 99223-AI; 99232-AI; 99233-AI; 99239; C1751; J1170; J1644; J1815; J2270; J2543; J3370; J3475; J3480; J7030; J7050

== ENCOUNTER 2020-12-25 16:31 | Emergency (ER) | payer MEDICARE, MEDICAID ==
[~2020-12-25] VITALS: Ht 175.3 cm; Wt 63.6 kg
[~2020-12-25 16:31] MED LIST changes: +AMOXICILLIN 8751 TAB PO; +FERROUS SU325 MG/TAB PO; +ROXICODONE 55 MG/TAB PO
[2020-12-25 17:46] VITALS: TEMP 97.7
[2020-12-25 18:23] LABS: BASO # 0.1 (0.0-0.2); BASO % 0.9 % (0.0-2.0); GRAN # 6.4 (1.4-6.5); GRAN % 73.8 % (42.2-75.2); HEMATOCRIT 46.3 % (42.0-52.0); HEMOGLOBIN 14.7 g/dl (13.5-18.0); LYMPH # 1.5 (1.2-3.4); LYMPH % 17.4 % (20.0-51.0); MEAN CELL VOLUME 92 fl (80.0-100.0); MEAN CORPUSCULAR HEMOGLOBIN 29 pg (27.0-31.0); MEAN CORPUSCULAR HGB CONC 32 g/dl (33.0-37.0); MEAN PLATELET VOLUME 9.6 fl (7.4-10.4); MONO # 0.6 (0.1-0.6); MONO % 7.3 % (1.7-9.3); PLATELET COUNT 317 K/mm3 (130-400); RED BLOOD COUNT 5.04 M/mm3 (4.20-5.60); REDCELL DISTRIBUTION WIDTH-CV 15.2 % (11.5-14.5)
[2020-12-25 18:38] LABS: ALBUMIN 4.4 gm/dL (3.5-5.0); BILIRUBIN,TOTAL 0.8 mg/dL (0.0-1.0); CALCIUM 9.6 mg/dL (8.4-10.2); CREATININE, serum 0.85 (0.66-1.25); POTASSIUM 4.6 mmol/L (3.4-5.0); TOTAL PROTEIN 8.1 gm/dL (6.4-8.2)
[2020-12-25 19:55] VITALS: BP 148/62; PULSE 68
== END 2020-12-25 19:55 | disposition home or self-care (01) ==
LOC: COL.ER 16:31
PROVIDERS: Nurse Practitioner Primary Care
DX: E11.52 Type 2 diabetes mellitus with diabetic peripheral angiopathy with gangrene (principal); I96 Gangrene, not elsewhere classified; M79.661 Pain in right lower leg; I25.10 Atherosclerotic heart disease of native coronary artery without angina pectoris; I10 Essential (primary) hypertension; E78.5 Hyperlipidemia, unspecified; E11.40 Type 2 diabetes mellitus with diabetic neuropathy, unspecified; F17.210 Nicotine dependence, cigarettes, uncomplicated; Z88.8 Allergy status to other drugs, medicaments and biological substances; Z79.899 Other long term (current) drug therapy; Z79.84 Long term (current) use of oral hypoglycemic drugs
CPT/HCPCS: J2270; J7030

== ENCOUNTER 2021-02-01 11:11 | Emergency (ER) | payer MEDICARE, MEDICAID ==
[~2021-02-01] VITALS: Ht 175.3 cm; Wt 56.8 kg
[2021-02-01 12:00] LABS: BASO % 0.5 % (0.0-2.0); EOS % 0.4 % (0-4.0); GRAN # 4.7 (1.4-6.5); GRAN % 63.5 % (42.2-75.2); HEMATOCRIT 43.7 % (42.0-52.0); HEMOGLOBIN 14.9 g/dl (13.5-18.0); LYMPH # 1.6 (1.2-3.4); LYMPH % 21.4 % (20.0-51.0); MEAN CELL VOLUME 85 fl (80.0-100.0); MEAN CORPUSCULAR HEMOGLOBIN 29 pg (27.0-31.0); MEAN CORPUSCULAR HGB CONC 34 g/dl (33.0-37.0); MEAN PLATELET VOLUME 10.1 fl (7.4-10.4); MONO % 13.5 % (1.7-9.3); PLATELET COUNT 266 K/mm3 (130-400); RED BLOOD COUNT 5.12 M/mm3 (4.20-5.60); REDCELL DISTRIBUTION WIDTH-CV 14.2 % (11.5-14.5)
[2021-02-01 12:10] LABS: BILIRUBIN,TOTAL 0.7 mg/dL (0.0-1.0); CALCIUM 9.1 mg/dL (8.4-10.2); CREATININE, serum 0.68 (0.66-1.25); TOTAL PROTEIN 7.2 gm/dL (6.4-8.2)
[2021-02-01 12:13] LABS: POTASSIUM 2.9 mmol/L (3.4-5.0)
--- NOTE | 2021-02-01 14:38 | NUR ---
De Icer Kit Assembler responded to consult in the ED for patient who is having difficulty caring for himself at home. SW met with patient who advised he lives alone in [place] and sees Dr. Weston for primary care. Patient reports he has a friend that comes over three times a day to help him care for his pets. Patient states he has had trouble cleaning himself after a bowel movement due to weakness. Patient reports he mostly uses a wheelchair to get around at home but also has a cane and walker. KYAW discussed Home Health services with patient who was interested and agreeable to have referral sent [facility] KYAW obtained ED Physician signature on Face to Face Certification then faxed referral to Lachelle at [facility] KYAW then made report to Adult Protective Services for concerns with patient's ability to care for himself at home. Intake #[id number].
[2021-02-01 15:00] VITALS: BP 128/64; PULSE 84; TEMP 97.9
== END 2021-02-01 15:15 | disposition home or self-care (01) ==
LOC: COL.ER 11:11
PROVIDERS: Family Medicine
DX: R19.7 Diarrhea, unspecified (principal); E11.52 Type 2 diabetes mellitus with diabetic peripheral angiopathy with gangrene; I96 Gangrene, not elsewhere classified; E11.40 Type 2 diabetes mellitus with diabetic neuropathy, unspecified; I25.10 Atherosclerotic heart disease of native coronary artery without angina pectoris; I10 Essential (primary) hypertension; E78.5 Hyperlipidemia, unspecified; Z79.899 Other long term (current) drug therapy; Z79.84 Long term (current) use of oral hypoglycemic drugs; Z20.822 Contact with and (suspected) exposure to COVID-19
CPT/HCPCS: J7030; J7120

== ENCOUNTER 2021-03-02 05:55 | Observation (INO) | payer MEDICARE, MEDICAID ==
[~2021-03-02] VITALS: Ht 175.3 cm; Wt 56.8 kg
[2021-03-02] VITALS (9 sets, daily range): BP systolic 104–176; BP diastolic 51–90; PULSE 56–88; TEMP 97.7–98
--- NOTE | 2021-03-02 06:31 | NUR ---
Assisted x2 to standing scale. Patient unable to stand with assistance, unable to get weight.
[2021-03-02] MEDS ORDERED: ELIQUIS 5MG PO (06:39)
[2021-03-02] MEDS ORDERED: K-DUR 10 MEQ T10 MEQ PO (06:40)
[2021-03-02] MEDS ORDERED: SPIRIVA RE2.5 MCG/Ac IH (06:42)
[2021-03-02 07:16] LABS: INR 1.1 (0.8-3.0); PROTHROMBIN TIME 11.9 SECONDS (9.7-12.8)
--- NOTE | 2021-03-02 08:26 | NUR ---
PATIENT BELONGINGS SUCH WHEELCHAIR, SET OF CLOTHING, WALLET, KEYS, AND PHONE BROUGHT TO PACU. NOTIFIED TUMBLER MACHINE OPERATOR OF PATIENTS BELONGINGS.
--- NOTE | 2021-03-02 08:45 | NUR ---
PATIENT ADMITED INTO ROOM 342 POST OP RIGHT TOE AMPUTATION. RLE DRESSING IS CD&I WITH ACEWRAP & WALKING SHOE. PATIENT DENIES PAIN OR NAUSEA. ORIENTED X2 AND DROWSY. VSS. HEAD TO TOE ASSESSMENT COMPLETE. HOSPITALIST NOTIFIED WITH CONSULT. NO OTHER NEEDS. CALL LIGHT IN REACH. BED ALARM ON.
[2021-03-02] MEDS ORDERED: REMERON 15M15 MG/TA1 PO (11:53)
[2021-03-02 13:39] LABS: BASO # 0.1 K/mm3 (0.0-0.2); BASO % 0.6 % (0.0-2.0); GRAN # 6.6 K/mm3 (1.4-6.5); GRAN % 73.6 % (42.2-75.2); HEMOGLOBIN 11.2 g/dl (13.5-18.0); LYMPH # 1.5 K/mm3 (1.2-3.4); LYMPH % 16.7 % (20.0-51.0); MEAN CELL VOLUME 86 fl (80.0-100.0); MEAN CORPUSCULAR HEMOGLOBIN 29 pg (27.0-31.0); MEAN CORPUSCULAR HGB CONC 34 g/dl (33.0-37.0); MEAN PLATELET VOLUME 9.6 fl (7.4-10.4); MONO # 0.8 K/mm3 (0.1-0.6); MONO % 8.4 % (1.7-9.3); PLATELET COUNT 232 K/mm3 (130-400); REDCELL DISTRIBUTION WIDTH-CV 15.4 % (11.5-14.5)
[2021-03-02 13:40] LABS: HEMATOCRIT 33.4 % (42.0-52.0)
[2021-03-02 13:58] LABS: ALBUMIN 2.2 gm/dL (3.4-4.8); BILIRUBIN,TOTAL 0.5 mg/dL (0.2-1.2); CALCIUM 7.6 mg/dL (8.4-10.2); CREATININE, serum 0.69 mg/dL (0.72-1.25); MAGNESIUM 1.5 mg/dL (1.6-2.6); POTASSIUM 3.6 mmol/L (3.5-4.5); TOTAL PROTEIN 4.9 gm/dL (6.2-8.1)
[2021-03-02] MEDS ORDERED: PLAVIX 75MG TAB75 MG PO (14:24)
[2021-03-03] VITALS (7 sets, daily range): BP systolic 83–171; BP diastolic 40–88; PULSE 59–83; TEMP 97.4–98.3
[2021-03-03 07:03] LABS: HEMATOCRIT 42.5 % (42.0-52.0); MEAN CELL VOLUME 87 fl (80.0-100.0); MEAN CORPUSCULAR HEMOGLOBIN 28 pg (27.0-31.0); MEAN CORPUSCULAR HGB CONC 32 g/dl (33.0-37.0); MEAN PLATELET VOLUME 9.8 fl (7.4-10.4); PLATELET COUNT 308 K/mm3 (130-400); RED BLOOD COUNT 4.87 M/mm3 (4.20-5.60); REDCELL DISTRIBUTION WIDTH-CV 15.4 % (11.5-14.5)
[2021-03-03 07:17] LABS: HEMOGLOBIN 13.7 g/dl (13.5-18.0)
[2021-03-03 07:22] LABS: CALCIUM 8.2 mg/dL (8.4-10.2); CREATININE, serum 0.72 mg/dL (0.72-1.25); POTASSIUM 3.2 mmol/L (3.5-4.5)
--- NOTE | 2021-03-03 08:00 | NUR ---
PATIENT IS ORIENTED WITH SOME NOTED FORGETFULNESS. RLE DRESSING IS CD&I WITH ACEWRAP & WALKING SHOE. PATIENT DENIES PAIN OR NAUSEA. VSS. HEAD TO TOE ASSESSMENT COMPLETE. AM MEDS GIVEN. BREAKFAST TRAY AT BEDSIDE. LINE CONSTRUCTION SUPERVISOR REPORTED PATIENT SPILLING HIS URINAL MULTIPLE TIME THROUGHOUT THE NIGHT ALL OVER THE FLOOR. HOUSE KEEPING CALLED TO MOP FLOOR. NO OTHER NEEDS. CALL LIGHT IN REACH. BED ALARM ON.
--- NOTE | 2021-03-03 15:27 | NUR ---
SW was informed that there was a neighbor of the patients here to talk with me. SW attended rounds with hospitalist, then spoke with neighbor Veronica. She informed this worker that she and her have witnessed this patient falling several times around his home. She is very concerned and made an APS report this week. She wants to remain anonymous but she did come to the hospital to drop off some personal items the patient had asked her to stop and get. SW then met with patient to discuss discharge plan. Patient stated he lives alone in [place], has a wheelchair, a cane, and walker but rarely uses any of them. PCP is Dr. Harvey and he gets his prescriptions from [employer] [facility] [employer] [facility] [employer] with no difficulty affording them. Patient does not have an MPOA and would like to think about whether he wants one or not. Patient has a son and 2 daughters that all live in [place]. He has regular contact with his daughters. SW discussed rehab with this patient and he agrees that he needs it. Referrals sent to 1) [facility] and 2) [facility]. D/C Plan: pending further medical evals; anticipate d/c to skilled rehab
--- NOTE | 2021-03-03 18:15 | NUR ---
PATIENT SITTING AT EDGE OF BED EATTING SUPPER TRAY WHEN HIS BUTT SLIPPED OFF THE BED AND ON THE FLOOR. PATIENT REPORTS HE WAS NOT HURT. CYTOGENETICIST, CHARGE NURSE AND OTHER FLOOR STAFF WERE ALL ABLE TO EASILY HELP PATIENT BACK INTO BED. BED ALARM ON.
--- NOTE | 2021-03-03 19:30 | NUR ---
Bedside shift report received, assumed care for manager shift. Assessment complete. VS stable-blood pressure 90s/40s. Metoprolol held at this time. Currently eating dinner. Discussed blood sugar and need for a snack this shift to maintain-currently eating a sandwich. INT to right forearm flushes without difficulty. Dressing to right lower extremity-bulky white/gauze/hermann-CDI. Good CMS-elevated on pillow. Refusing ice due to it "being to cold." Plan of care discussed for this shift to include HS meds/pain control/calling for questions/concerns. Call light in reach/bed alarm on. Will monitor.
--- NOTE | 2021-03-03 21:35 | NUR ---
Called with c/o pain to right lower extremity-rating pain 8/10 on pain scale. Oxycodone given per dr order. Will monitor.
--- NOTE | 2021-03-04 01:40 | NUR ---
Called with c/o pain to right lower extremity and back. Rating pain 8/10 on pain scale-described as constant throbbing. Oxycodone given per dr smith.
[2021-03-04 03:47] VITALS: BP 105/58; PULSE 57; TEMP 98
--- NOTE | 2021-03-04 06:05 | NUR ---
C/O pain to right lower ext/back. Rating pain 8/10 on pain scale-described as constant throbbing. Oxycodone given per dr sarah.
[2021-03-04 06:43] LABS: BASO # 0.1 K/mm3 (0.0-0.2); BASO % 0.5 % (0.0-2.0); EOS # 0.1 K/mm3 (0.0-0.7); EOS % 0.8 % (0-4.0); GRAN # 8.3 K/mm3 (1.4-6.5); GRAN % 64.8 % (42.2-75.2); HEMOGLOBIN 11.9 g/dl (13.5-18.0); LYMPH # 2.9 K/mm3 (1.2-3.4); LYMPH % 22.4 % (20.0-51.0); MEAN CELL VOLUME 84 fl (80.0-100.0); MEAN CORPUSCULAR HEMOGLOBIN 28 pg (27.0-31.0); MEAN CORPUSCULAR HGB CONC 34 g/dl (33.0-37.0); MEAN PLATELET VOLUME 9.5 fl (7.4-10.4); MONO # 1.4 K/mm3 (0.1-0.6); MONO % 10.8 % (1.7-9.3); PLATELET COUNT 284 K/mm3 (130-400); RED BLOOD COUNT 4.23 M/mm3 (4.20-5.60); REDCELL DISTRIBUTION WIDTH-CV 15.2 % (11.5-14.5)
[2021-03-04 06:53] LABS: HEMATOCRIT 35.3 % (42.0-52.0)
[2021-03-04 07:01] LABS: CALCIUM 7.8 mg/dL (8.4-10.2); CREATININE, serum 0.66 mg/dL (0.72-1.25); POTASSIUM 3.8 mmol/L (3.5-4.5)
[2021-03-04 08:55] VITALS: BP 94/55; PULSE 64; TEMP 97.9
--- NOTE | 2021-03-04 11:58 | NUR ---
Patient valuable envelope received from patient and placed in HS safe.
[2021-03-04 16:15] VITALS: BP 90/48; PULSE 63; TEMP 99.5
[2021-03-04 19:07] VITALS: BP 114/54; BP 123/59; PULSE 72; TEMP 98.7
--- NOTE | 2021-03-04 19:53 | NUR ---
Bedside shift report received, assumed care for maintenance technician 3rd shift. Assessment complete. A&Ox3. Denies shortness of breath/nausea. Rating pain 8/10 on pain scale-described as constant throbbing. Oxycodone given per dr order. INT to right forearm flushes without difficulty. Dressing to right foot-bulky white/hermann-CDI. Good CMS. Plan of care discussed for this shift to include HS meds/pain control/calling for questions/concerns. Verbalizes understanding. Call light in reach/bed alarm on. Will monitor.
[2021-03-04 23:07] VITALS: BP 112/61; PULSE 66; TEMP 98.3
--- NOTE | 2021-03-05 01:15 | NUR ---
Called with c/o pain to abdomen/back-rating pain 12/20-described as constant ache. Oxycodone given per dr smith.
[2021-03-05 03:16] VITALS: BP 125/64; PULSE 69; TEMP 98.4
--- NOTE | 2021-03-05 07:00 | NUR ---
Patient is resting in bed and requested a pain pill because he has chronic lower back pain. Patient stated pain was 6/10. Call light and bedside table are within reach. Will continue to monitor patient throughout shift.
[2021-03-05 07:07] LABS: CALCIUM 8.5 mg/dL (8.4-10.2); CREATININE, serum 0.72 mg/dL (0.72-1.25); POTASSIUM 4.4 mmol/L (3.5-4.5)
[2021-03-05 08:00] VITALS: BP 97/52; PULSE 63; TEMP 98.4
[2021-03-05 12:52] VITALS: BP 118/63; PULSE 68; TEMP 97.8
--- NOTE | 2021-03-05 14:21 | NUR ---
mental health social worker informed by manager of case management Olive that the patient should be OBS status and not IP. Follow up needed for placement
[2021-03-05 16:22] VITALS: BP 132/66; PULSE 65; TEMP 98.1
--- NOTE | 2021-03-05 19:00 | NUR ---
RECEIVED CHANGE OF SHIFT REPORT FROM DAY SHIFT NURSE.
[2021-03-05 20:07] VITALS: BP 122/63; PULSE 66; TEMP 98.7
[2021-03-05 23:57] VITALS: BP 158/68; PULSE 71; TEMP 98.4
[2021-03-06] VITALS (7 sets, daily range): BP systolic 80–155; BP diastolic 53–66; PULSE 61–90; TEMP 98.1–98.9
[2021-03-06 06:47] LABS: BASO # 0.1 K/mm3 (0.0-0.2); EOS # 0.1 K/mm3 (0.0-0.7); EOS % 1.1 % (0-4.0); GRAN # 7.2 K/mm3 (1.4-6.5); GRAN % 62.9 % (42.2-75.2); HEMOGLOBIN 10.6 g/dl (13.5-18.0); LYMPH # 2.7 K/mm3 (1.2-3.4); LYMPH % 23.7 % (20.0-51.0); MEAN CORPUSCULAR HEMOGLOBIN 28 pg (27.0-31.0); MEAN CORPUSCULAR HGB CONC 32 g/dl (33.0-37.0); MEAN PLATELET VOLUME 9.9 fl (7.4-10.4); MONO # 1.2 K/mm3 (0.1-0.6); MONO % 10.4 % (1.7-9.3); PLATELET COUNT 343 K/mm3 (130-400); RED BLOOD COUNT 3.76 M/mm3 (4.20-5.60); REDCELL DISTRIBUTION WIDTH-CV 15.2 % (11.5-14.5)
[2021-03-06 06:51] LABS: HEMATOCRIT 33.4 % (42.0-52.0); MEAN CELL VOLUME 89 fl (80.0-100.0)
[2021-03-06 07:10] LABS: CALCIUM 8.4 mg/dL (8.4-10.2); CREATININE, serum 0.63 mg/dL (0.72-1.25); POTASSIUM 4.2 mmol/L (3.5-4.5)
--- NOTE | 2021-03-06 07:15 | NUR ---
CHANGE OF SHIFT REPORT GIVEN TO DAY SHIFT NURSE, SUSAN JOY.
--- NOTE | 2021-03-06 09:24 | NUR ---
Per Melissa in [facility] - unable to accept d/t unlikely patient will be able to return home and unlikely patient can tolerate 3 hours of therapy Per Olive - patient is OBS status and although patient would like to go to SNF it will be private pay. SW will this discuss with patient.
--- NOTE | 2021-03-06 10:48 | NUR ---
Shift assessment completed. Scheduled medications given. Patient rates current back pain 12/20. PRN medication given, patient repositioned. RLE is bandaged, patient able to wiggle toes, good cap refill noted. Patient denies any further pain, discomfort, SOA, or needs at this time. Call light in reach. Fall precautions in place. VSS. Patient A&O.
--- NOTE | 2021-03-06 13:09 | NUR ---
Initial visit; Patient thanked Electrical And Instrument Technician for offering "Good morning," and keeping him in Electrical And Instrument Technician's prayers.
--- NOTE | 2021-03-06 13:44 | NUR ---
Referral faxed to [facility] and Sandie contacted. Directed Sandie to follow up with Monse on the case.
--- NOTE | 2021-03-06 16:21 | NUR ---
Sandie at [facility] declined referral.
--- NOTE | 2021-03-06 18:10 | NUR ---
Patient has had a rough day. Patient has been C/O aching back pain for a majority of the day. PRN medication given as often as it is able to be. Patient states that medication has been effective. Mood has been labile. Patient stated earlier in shift that he wishes to have his money back from the safe. States that he is purchasing car parts from a visitor. Asked patient if he wanted us to keep the money in the safe until his visitor arrives. Patient got very upset and demanded his money be brought to him. Marine Diesel Mechanic contacted. Money brought and counted out in front of the patient. WENDY Burden verified return of money. Patient currently lying in bed resting. Denies any further needs at this time. Call light in reach. Fall precautions in place. VSS. Patient A&O.
--- NOTE | 2021-03-06 18:42 | NUR ---
DEPT DIRECTOR IN WITH PATIENT, PATIENT REQUESTED AND GIVEN COFFEE. RESTING IN BED. RECEIVED CHANGE OF SHIFT REPORT FROM DAY SHIFT NURSE.
--- NOTE | 2021-03-06 20:05 | NUR ---
REPORTS HAS HAD COUGH AND PLANS ON MENTIONING COUGH TO PROVIDER. DENIES CHEST PAIN/SOA/NAUSEA AT THIS TIME. DENIES NUMBNESS/TINGLING TO EXTREMITIES AT THIS TIME. INT TO RFA, FLUSHES WITH NO PROBLEMS.
--- NOTE | 2021-03-06 23:22 | NUR ---
PATIENT REQUESTING PAIN MEDS, INFORMED TOO EARLY FOR DOSE ADMIN AT THIS TIME. BED ALARM ON WITH CALL LIGHT WITHIN REACH.
--- NOTE | 2021-03-07 01:52 | NUR ---
PATIENT REQUESTED TO BE UP IN W/C, REQUESTING TO HAVE PAIN MEDS WHEN NEXT AVAILABLE, INFORMED PATIENT WHEN PAIN MEDS WOULD BE AVAILABLE, SEE MAR. PATIENT REFUSED TO USE WALKER WITH PIVOT TRANSFER, PATIENT NOT ABLE TO ASSIST WITH STAND/PIVOT TRANSFERRING, STAFF NURSE PROVIDED MAX ASST X1 WITH PIVOT TRANSFER WITH PATIENT NOT FULLY STANDING UP IN POSTURING. PATIENT SELF PROPELLED IN W/C ABOUT 100 FEET THEN REPORTED FATIGUE, REQUESTED TO BE PUT BACK IN BED WITH STAFF NURSE PROVIDING MAX ASSIST X1 WITH STANDING/PIVOT TRANSFERING WITH PATIENT NOT STANDING UP FULLY IN POSTURE WITH TRANSFER. BED ALARM ON WITH CALL LIGHT WITHIN REACH.
[2021-03-07 03:13] VITALS: BP 97/51; PULSE 104; TEMP 98.3
--- NOTE | 2021-03-07 05:56 | NUR ---
REPORTS WANTS TO HAVE DOCTOR LOOK AT HIS LEFT HEEL "I THINK I HAVE SORES ON THERE TOO LIKE WHAT I HAD ON MY RIGHT FOOT... MAYBE THE DOCTOR SHOULD TAKE AT LOOK AT MY LEFT FOOT"
--- NOTE | 2021-03-07 06:53 | NUR ---
CHANGE OF SHIFT REPORT GIVEN TO DAY SHIFT NURSE, SUSAN JOY.
[2021-03-07 07:33] VITALS: BP 164/78; PULSE 65; TEMP 98
[2021-03-07 08:23] LABS: BASO # 0.1 K/mm3 (0.0-0.2); GRAN # 6.6 K/mm3 (1.4-6.5); GRAN % 61.2 % (42.2-75.2); HEMATOCRIT 37.1 % (42.0-52.0); LYMPH # 2.7 K/mm3 (1.2-3.4); LYMPH % 25.5 % (20.0-51.0); MEAN CELL VOLUME 85 fl (80.0-100.0); MEAN CORPUSCULAR HEMOGLOBIN 28 pg (27.0-31.0); MEAN CORPUSCULAR HGB CONC 32 g/dl (33.0-37.0); MEAN PLATELET VOLUME 9.4 fl (7.4-10.4); MONO # 1.2 K/mm3 (0.1-0.6); PLATELET COUNT 428 K/mm3 (130-400); RED BLOOD COUNT 4.35 M/mm3 (4.20-5.60); REDCELL DISTRIBUTION WIDTH-CV 15.2 % (11.5-14.5)
[2021-03-07 08:42] LABS: CREATININE, serum 0.72 mg/dL (0.72-1.25); POTASSIUM 4.2 mmol/L (3.5-4.5)
--- NOTE | 2021-03-07 09:15 | NUR ---
Scheduled medications given. Shift assessment completed. No s/s of pain or discomfort at this time. Patient up to the bathroom, reddened but blanchable sacrum noted. Mepilex placed. Generalized bruising noted. Patient is able to feel sensation and has movement of RLE. Patient is a two heavy assist to the restroom. Patient denies any further needs at this time. Patient up in wheelchair, with alarm in place. Call light in reach. Fall precautions in place. VSS. Patient A&O.
--- NOTE | 2021-03-07 10:00 | NUR ---
KYAW romano call back from Deborah at [facility] and they are not able to take patient d/t his high needs.
[2021-03-07 11:36] VITALS: BP 107/58; PULSE 54; TEMP 98.4
[2021-03-07 15:34] VITALS: BP 133/96; PULSE 65; TEMP 98.2
--- NOTE | 2021-03-07 15:42 | NUR ---
Gaming Floor Supervisor faxed referrals to [facility] and [facility]. [facility]ira at [facility] contacted SW and requested patient's room phone number. Once a facility can accept, patient will need prior authorization from insurance. KYAW met with patient to provide update that the above referrals were sent. Patient advised that he will be "voluntarily evicted" from his apartment in about 20 days because he can no longer afford his rent.
--- NOTE | 2021-03-07 19:13 | NUR ---
Patient has has an ok day. PRN pain medication given when requested. Patient had a large, hard BM today. Patient currenlty lying in bed. No s/s of pain, discomfort, or further needs a this time. Call light in reach. Fall precautions in place.
[2021-03-07 19:22] VITALS: BP 126/61; PULSE 58; TEMP 98.3
--- NOTE | 2021-03-07 19:27 | NUR ---
RECEIVED CHANGE OF SHIFT REPORT FROM DAY SHIFT NURSE. RESTING IN BED, EXIT ALARM ON WITH CALL LIGHT WITHIN REACH.
--- NOTE | 2021-03-07 21:00 | NUR ---
C/O L HEEL HURTING, L HEEL SKIN REDDENED, HEEL PROTECTOR PLACED, SECURED WITH COBAN AFTER NEIL HOSE REMOVED. ALSO OBSERVED REDNESS TO ANTERIOR L ANKLE AREA WITH PROTECTIVE DRESSING PLACE
--- NOTE | 2021-03-07 21:12 | NUR ---
PATIENT INSISTED TO GET UP IN WHEELED CHAIR, GAIT BELT ON, MAX ASSIST X1 TRANSFER WITH STAFF NURSE. PATIENT STARTED TO GET DRESSED IN STREET CLOTHES WHEN STAFF ASKED PATIENT IF HE WAS GOING ANYWHERE IN PARTICULAR, PATIENT THEN REMEMBERED HE WAS IN THE HOSPITAL AND WAS TO STAY IN HOSPITAL UNTIL DISCHARGED BY DOCTOR. PATIENT UP IN ROOM IN W/C WITH EXIT ALARM ON WHILE IN W/C WITH NO OTHER NEEDS REPORTED. SEE MAR FOR PAIN MEDS GIVEN PER PATIENT REQUEST.
[2021-03-07 23:48] VITALS: BP 125/62; PULSE 59; TEMP 97.9
[2021-03-08 03:52] VITALS: BP 119/60; PULSE 56; TEMP 97.9
--- NOTE | 2021-03-08 07:02 | NUR ---
Report received from RUFINO Ricardo. Patient is resting in bed. Call light and bedside table are within reach. Will continue to monitor patient throughout shift.
--- NOTE | 2021-03-08 07:04 | NUR ---
CHANGE OF SHIFT REPORT GIVEN TO DAY SHIFT NURSE, GUSTAVO JOY.
[2021-03-08 07:10] LABS: CALCIUM 8.3 mg/dL (8.4-10.2); CREATININE, serum 0.72 mg/dL (0.72-1.25); POTASSIUM 4.2 mmol/L (3.5-4.5)
[2021-03-08 08:09] VITALS: BP 161/72; PULSE 61; TEMP 97.4
[2021-03-08 11:38] VITALS: BP 125/55; PULSE 57; TEMP 98
--- NOTE | 2021-03-08 12:48 | NUR ---
Patient's is at bedside.
--- NOTE | 2021-03-08 16:13 | NUR ---
Screening Nurse spoke with Shira from [facility] and at this time they will follow, but are hesitant to accept due to patient's lack of discharge plan. KYAW met with patient to provide update. KYAW advised referral will be sent to [facility]. Patient is agreeable to go to a facility, however states he needs to go home first to pack up his belongings. KYAW advised he would have to go straight to the accepting facility upon discharge and patient is not happy with this. Patient states he needs to do this and has no one to help him. KYAW faxed referral to Dakota at [facility]. Dakota advised they will have to decline due to patient being on the drug offender registry. KYAW faxed [facility] [facility] to [facility], [facility], [facility], and [facility].
[2021-03-08 16:32] VITALS: BP 114/53; PULSE 52; TEMP 98.2
[2021-03-08 19:05] VITALS: BP 132/57; PULSE 59; TEMP 98.9
[2021-03-08 23:06] VITALS: BP 120/77; PULSE 60; TEMP 98.9
--- NOTE | 2021-03-09 02:14 | NUR ---
PT RESTING QUIETLY IN BED. DRESSING TO RIGHT FOOT INTACT. PT REQUESTS PAIN MEDICATION APPROXIMATELY Q 4HRS FOR PAIN IN RIGHT FOOT. PT DID EAT A SNACK OF JELLO OF CRACKERS EARLIER IN NIGHT. USES URINAL TO VOID, HAS BEEN EMPTIED MULTIPLE TIMES. URINE IS LIGHT TAMI ET CLEAR. RESPIRATIONS UNLABORED, CALL LIGHT WITHIN REACH.
[2021-03-09 02:59] VITALS: BP 128/66; PULSE 61; TEMP 98.4
--- NOTE | 2021-03-09 08:00 | NUR ---
PATIENT IS A&O. VSS. REPORTS PAIN IS WELL MANAGED IN RLE. RIGHT FOOT DRESSING IS CD&I WITH ACEWRAP AND WALKING SHOE. PATIENT IS VERY WEAK AND REQUIRED 2 ASSIST TO STAND AND GET HIS PANTS ON. PATIENT IS DRESSED AND IS CURRENTLY PACKING ALL OF HIS BELONGINGS. PATIENT STATES "I AM DISCHARGE HOME TODAY, I HAVE STUFF I NEED TO DO". PATIENT WENT ON TO SAY "IF THE DOCTOR WONT RELEASE HIM HE WILL LEAVE AMA". HEAD TO TOE ASSESSMENT COMPLETE. SEVERAL SKIN INTEGRITY ISSUES, SEE SHIFT ASSESSMENT. PATIENT HAS NON-PRODUCTIVE SMOKERS COUGH. CLOTHES SMELL OF CIGARETTES & MARIJUANA. AM MEDS GIVEN. AB BS WAS 144, SO SSI REQUIRED. TOLERATING ADA DIET, 1,500CC FLUID RESTRICTION. NO OTHER NEEDS AT THIS TIME. CALL LIGHT IN REACH.
[2021-03-09 08:06] VITALS: BP 124/60; PULSE 72; TEMP 97.9
[2021-03-09] MEDS ORDERED: DOXYCYCLINE 10100 MG PO (09:21)
--- NOTE | 2021-03-09 12:10 | NUR ---
PATIENT DISCHARGING HOME VIA WC TO HOME BY TAXI. GAVE DISCHARGE INSTRUCTIONS, E-SCRIPT SENT, DISCUSSED F/U APTS AND ANSWERED QUESTIONS. DC'D RIGHT FORARM IV, COVERED SITE WITH GAUZE & COBAN. PATIENT IS DRESSED, PACKED AND DISCHARGED.
--- NOTE | 2021-03-09 16:29 | NUR ---
Experimental Worker followed up with patient this morning and patient's bags were packed and he stated he was going home today. SW asked patient how he would be getting home and he stated he would get a taxi. SW then asked patient how he would transfer in and out of the taxi and he stated he had that "all worked out". Patient advised he has a friend that will be staying with him for a few days. SW reviewed the above information with hospitalist and orders will be put in for discharge with home health. KYAW contacted [facility] and faxed referral/orders. SW made report to Adult Protective Services (intake #[id number])
== END 2021-03-09 12:10 | disposition home or self-care (01) ==
LOC: SDCO 05:55 → SURG 08:40 → SDCO 09:45 → SURG 03-04 06:01
PROVIDERS: Physician Assistant; ADMIT Orthopaedic Surgery Sports Medicine
DX: I96 Gangrene, not elsewhere classified (principal); I10 Essential (primary) hypertension; M10.9 Gout, unspecified; E78.00 Pure hypercholesterolemia, unspecified; I25.10 Atherosclerotic heart disease of native coronary artery without angina pectoris; I11.0 Hypertensive heart disease with heart failure; I50.9 Heart failure, unspecified; I48.91 Unspecified atrial fibrillation; E78.5 Hyperlipidemia, unspecified; J44.9 Chronic obstructive pulmonary disease, unspecified; F17.210 Nicotine dependence, cigarettes, uncomplicated; Z86.73 Personal history of transient ischemic attack (TIA), and cerebral infarction without residual deficits; E11.9 Type 2 diabetes mellitus without complications
CPT/HCPCS: OP; 99222; 99232-AI; G0378; J0690; J1815; J2250; J2704; J3010; J3475; J7030

== ENCOUNTER 2021-04-05 11:47 | Emergency (ER) | payer MEDICARE, MEDICAID ==
[~2021-04-05] VITALS: Ht 175.3 cm; Wt 56.8 kg
[~2021-04-05 11:47] MED LIST changes: +REMERON 15M15 MG/TA1 PO; +SPIRIVA RE2.5 MCG/Ac IH
[2021-04-05 12:55] LABS: BASO # 0.1 K/mm3 (0.0-0.2); BASO % 0.6 % (0.0-2.0); GRAN # 9.6 K/mm3 (1.4-6.5); HEMATOCRIT 42.4 % (42.0-52.0); HEMOGLOBIN 13.1 g/dl (13.5-18.0); LYMPH # 0.9 K/mm3 (1.2-3.4); LYMPH % 8.2 % (20.0-51.0); MEAN CELL VOLUME 90 fl (80.0-100.0); MEAN CORPUSCULAR HEMOGLOBIN 28 pg (27.0-31.0); MEAN CORPUSCULAR HGB CONC 31 g/dl (33.0-37.0); MEAN PLATELET VOLUME 9.5 fl (7.4-10.4); MONO # 0.5 K/mm3 (0.1-0.6); MONO % 4.5 % (1.7-9.3); PLATELET COUNT 341 K/mm3 (130-400); RED BLOOD COUNT 4.74 M/mm3 (4.20-5.60); REDCELL DISTRIBUTION WIDTH-CV 15.9 % (11.5-14.5)
[2021-04-05 13:21] LABS: ALBUMIN 3.2 gm/dL (3.4-4.8); C-REACTIVE PROTEIN 3.09 mg/dL (0.00-0.50); CALCIUM 9.7 mg/dL (8.4-10.2); CREATININE, serum 0.68 mg/dL (0.72-1.25); POTASSIUM 4.2 mmol/L (3.5-4.5); TOTAL PROTEIN 7.2 gm/dL (6.2-8.1)
[2021-04-05 17:16] LABS: COLLECTION METHOD CLEAN CATCH
[2021-04-05 17:30] LABS: MUCOUS Present (NOT PRESENT); PH 7 (5-8); SQUAMOUS EPITHELIAL 0-2 /hpf (0-10); URINE APPEARANCE Clear (CLEAR/HAZY); URINE BACTERIA None Seen (NONE SEEN); URINE BILIRUBIN Negative (NEGATIVE); URINE BLOOD Negative (NEGATIVE); URINE COLOR Yellow (YELLOW); URINE GLUCOSE Negative (NEGATIVE); URINE KETONE 1+ (NEGATIVE); URINE LEUKOCYTE ESTERASE Negative (NEGATIVE); URINE NITRATE Negative (NEGATIVE); URINE PROTEIN(semi-quant) Negative (NEGATIVE); URINE RBC 0-2 /hpf (0-2); URINE UROBILINOGEN >=4.0 mg/dL (NEGATIVE)
[2021-04-05 20:00] VITALS: BP 136/64; PULSE 80; TEMP 98.1
== END 2021-04-05 20:00 | disposition home or self-care (01) ==
LOC: COL.ER 11:47
PROVIDERS: Emergency Medicine
DX: R53.81 Other malaise (principal); R53.83 Other fatigue; I25.10 Atherosclerotic heart disease of native coronary artery without angina pectoris; I48.91 Unspecified atrial fibrillation; J43.9 Emphysema, unspecified; E11.9 Type 2 diabetes mellitus without complications; F41.9 Anxiety disorder, unspecified; I10 Essential (primary) hypertension; Z20.822 Contact with and (suspected) exposure to COVID-19; Z79.84 Long term (current) use of oral hypoglycemic drugs; Z79.01 Long term (current) use of anticoagulants; Z79.899 Other long term (current) drug therapy
CPT/HCPCS: J7030

== ENCOUNTER 2021-05-10 07:51 | Emergency (ER) | payer MEDICARE, MEDICAID ==
[~2021-05-10] VITALS: Ht 175.3 cm; Wt 59.5 kg
[2021-05-10 07:53] VITALS: TEMP 97
[2021-05-10 08:10] LABS: BASO # 0.1 K/mm3 (0.0-0.2); BASO % 0.7 % (0.0-2.0); EOS # 0.2 K/mm3 (0.0-0.7); EOS % 1.8 % (0.0-4.0); GRAN # 8.4 K/mm3 (1.4-6.5); GRAN % 77.5 % (42.2-75.2); HEMATOCRIT 39.4 % (42.0-52.0); HEMOGLOBIN 12.4 g/dl (13.5-18.0); LYMPH # 1.2 K/mm3 (1.2-3.4); LYMPH % 11.2 % (20.0-51.0); MEAN CELL VOLUME 88 fl (80.0-100.0); MEAN CORPUSCULAR HEMOGLOBIN 28 pg (27-31); MEAN CORPUSCULAR HGB CONC 32 g/dl (33.0-37.0); MEAN PLATELET VOLUME 9.5 fl (7.4-10.4); MONO # 0.9 K/mm3 (0.1-0.6); MONO % 8.5 % (1.7-9.3); PLATELET COUNT 252 K/mm3 (130-400); RED BLOOD COUNT 4.46 M/mm3 (4.20-5.60); REDCELL DISTRIBUTION WIDTH-CV 15.1 % (11.5-14.5)
[2021-05-10 08:19] LABS: INR 1.5 (0.8-3.0); PROTHROMBIN TIME 16.6 SECONDS (9.7-12.8)
[2021-05-10 08:24] LABS: ALBUMIN 3.4 gm/dL (3.4-4.8); BILIRUBIN,TOTAL 0.5 mg/dL (0.2-1.2); CALCIUM 8.7 mg/dL (8.4-10.2); CREATININE, serum 0.73 mg/dL (0.72-1.25); MAGNESIUM 1.6 mg/dL (1.6-2.6); POTASSIUM 3.4 mmol/L (3.5-4.5); TOTAL PROTEIN 6.7 gm/dL (6.2-8.1)
[2021-05-10] MEDS ORDERED: CATAPRES 0.1MG0.1 MG PO (08:24)
[2021-05-10] MEDS ORDERED: COZAAR 50MG50 MG/TAB PO (08:25)
[2021-05-10] MEDS ORDERED: DAZIDOX10 MG PO (08:27)
[2021-05-10 08:30] LABS: TROPONIN-I 0.024 ng/mL (0.00-0.033)
[2021-05-10] MEDS ORDERED: TOPROL XL 25MG25 MG PO (09:32)
[2021-05-10 10:01] VITALS: BP 153/79; PULSE 75
== END 2021-05-10 10:29 | disposition home or self-care (01) ==
LOC: COL.ER 07:51
PROVIDERS: Emergency Medicine
DX: I49.3 Ventricular premature depolarization (principal); I10 Essential (primary) hypertension; E78.5 Hyperlipidemia, unspecified; I25.10 Atherosclerotic heart disease of native coronary artery without angina pectoris; I48.91 Unspecified atrial fibrillation; J44.9 Chronic obstructive pulmonary disease, unspecified; E11.9 Type 2 diabetes mellitus without complications; N40.0 Benign prostatic hyperplasia without lower urinary tract symptoms; G89.29 Other chronic pain; F41.9 Anxiety disorder, unspecified; Z86.73 Personal history of transient ischemic attack (TIA), and cerebral infarction without residual deficits; Z79.899 Other long term (current) drug therapy; Z79.84 Long term (current) use of oral hypoglycemic drugs; Z79.51 Long term (current) use of inhaled steroids; Z79.01 Long term (current) use of anticoagulants; Z79.02 Long term (current) use of antithrombotics/antiplatelets; Z79.891 Long term (current) use of opiate analgesic
CPT/HCPCS: J7030